=== PATIENT | female | born 1970 | race Caucasian/White ===

== ENCOUNTER → 2017-01-01 | Day surgery (SDC) | payer MEDICAID, MEDICARE ==
[~2017-01-01] MED LIST: BUPIVACAINE HCL PF 0.5% 10 ML VIAL ONE; COEN400C PO; D31000TA PO; GABA600T PO; GLIM1 PO; HYDR-3533 PO; KETOROLAC TROMETHAMINE 30 MG/ML (IVP) VIAL IV PUSH ONE; LACTATED RINGER'S 1000 ML INJ 1,000 ML ONE; MIDAZOLAM HCL 2 MG/2 ML VIAL ONE; ONDANSETRON HCL 4 MG/2 ML VIAL IV PUSH ONE; PRAV20 PO; PROPOFOL 200 MG/20 ML AMP IV ONE; SITA100 PO; TRIAMCINOLONE ACETONIDE 40 MG/ML VIAL ONE; ULTR50TA PO; VITA100017 PO; VITA400C70 PO; ceFAZolin 2 GM PREMIX 50 ML ONE
--- NOTE | 2017-01-02 13:43 | MP ---
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 PROCEDURE PREFORMED: Excision right third interspace mass Abdi's neuroma Neurectomy. SPECIMEN Right foot third interspace likely neuroma. ESTIMATED BLOOD LOSS Less than 30 ml's. INJECTABLES 0.5 cc of Kenalog 40, 10 cc of 0.25% Marcaine plain PLAN OF ACTIVITY: PACU then DC home once stable per same-day surgery criteria JUSTIFICATION FOR PROCEDURE: 46-year-old female with increasing right foot pain. MRI per my read showed inflammation around the third interspace nerve. We devised a plan to move forward surgical intervention. The patient was noted to have an elevated hemoglobin A1c, she was counseled on the possibility of wound dehiscence deep infection, delayed healing. The patient was okay with the risks and chose to move forward surgery. PROCEDURE IN DETAIL Under mild sedation the patient was brought to the operating room, placed on the operative the supine position following the induction of general anesthesia, local anesthesia was seen about the forefoot utilizing standard block fashion. The right foot was then scrubbed, prepped and draped in the usual aseptic fashion. The foot was elevated, exsanguinated previously placed mid ankle tourniquet inflated to 250 mmHg and the incision was made over the dorsal aspect of the base of the third digit which curved slightly into the third interspace. Sharp and blunt dissection was carried down to the superficial adipose and being careful not to violate the dorsal neurovascular structures. Sharp and blunt dissection was carried down to the transverse intermetatarsal ligament which was then severed. There is noted to be inflamed third interspace nerve. It was then dissected out into the distal portions of the level of the third and fourth digit, utilizing vessel loops this was identified. The nerve was then pulled as far distally as proximal and infiltrated with and Kenalog at the stump allowing for retraction after severance of the nerve deep into the plantar interossei. The neuroma was then removed it appeared to be an inflamed nerve however, there is no obvious soft tissue hardness, texture or infiltrating mass type presentation. The wound was flushed copious amounts of normal saline. The wound was then closed in layers. Upon relieving the tourniquet there is a prompt hyperemic response to all digits without any delayed capillary fill time. The patient is heel transfer weight-bear. She will ice, elevate. I will see the patient in 3-5 days. FRANCOISE Gaines /3:24 PM /1:36 PM
== END | disposition home or self-care (01) ==
LOC: ESDC 13:24
PROVIDERS: ATTEND Podiatrist Foot & Ankle Surgery
DX: G57.61 Lesion of plantar nerve, right lower limb (principal)
CPT/HCPCS: 01470; 28080; 88304; J0690; J1885; J2250; J2405; J3010; J3301; J7120

== ENCOUNTER 2017-06-25 01:57 | Emergency (ER) | payer MEDICARE ==
[~2017-06-25] VITALS: Ht 175.3 cm; Wt 109.8 kg
[~2017-06-25 01:57] MED LIST changes: -BUPIVACAINE HCL PF 0.5% 10 ML VIAL ONE; -KETOROLAC TROMETHAMINE 30 MG/ML (IVP) VIAL IV PUSH ONE; -LACTATED RINGER'S 1000 ML INJ 1,000 ML ONE; -MIDAZOLAM HCL 2 MG/2 ML VIAL ONE; -ONDANSETRON HCL 4 MG/2 ML VIAL IV PUSH ONE; -PROPOFOL 200 MG/20 ML AMP IV ONE; -TRIAMCINOLONE ACETONIDE 40 MG/ML VIAL ONE; -ceFAZolin 2 GM PREMIX 50 ML ONE
[2017-06-25 02:02] VITALS: BP 173/103; PULSE 110; RESP 22; TEMP 98.7; O2SAT 95
--- NOTE | 2017-06-25 02:55 | PD ---
HPI Chief Complaint: elevated blood sugar Time Seen by Provider: 02:48 Travel History International Travel<30 days: No Contact w/Intl Traveler<30days: No Traveled to known affect area: No History of Present Illness HPI The patient is a 47-year-old female that is a glimepiride and metformin controlled diabetic who got a shot of prednisone about 11 AM yesterday. Her blood sugar went up to 500 at home area she took an extra 500 mg of metformin next are as well as two 1 mg tablets of glimepiride. She comes in because she is concerned about her puncture. The Accu-Chek here done it 0240 was 450. PFSH Past Medical History Diabetes: Yes Genitourinary: Yes (UTIs) Immunizations Current: Yes Past Surgical History Hysterectomy: Yes (partial) Tonsillectomy: Yes Other Surgery: Yes (SINUS) Social History Alcohol Use: Yes (rare) Tobacco Use: No Substance Use: No Allergies-Medications (Allergen,Severity, Reaction): Coded Allergies: No Known Allergies (Unverified , 06/25/17) Reported Meds & Prescriptions Reported Meds & Active Scripts Active Reported Amoxicillin 875 Mg Tab 875 Mg PO BID Gemfibrozil 600 Mg Tab 600 Mg PO BIDAC Take 30 minutes prior to breakfast and dinner. Metformin ER (Metformin HCl) 500 Mg Gilberto 500 Mg PO HS With evening meal Glimepiride 2 Mg Tab 2 Mg PO TID Sumatriptan (Sumatriptan Succinate) 25 Mg Tab 25 Mg PO ONCE PRN If a satisfactory response has not been obtained at 2 hours, a second dose may be administered Gabapentin 600 Mg Tab 600 Mg PO HS Review of Systems Except as stated in HPI: all other systems reviewed are Neg Physical Exam Narrative GENERAL: Well-nourished, alert and oriented, obese patient in no apparent distress. Her vital signs show pulse rate of 110 and blood pressure 173/103 but are otherwise normal. SKIN: Focused skin assessment warm/dry. HEAD: Normocephalic. EYES: No scleral icterus. No injection or drainage. NECK: Supple, trachea midline. No JVD or lymphadenopathy. CARDIOVASCULAR: Regular rate and rhythm without murmurs, gallops, or rubs. RESPIRATORY: Breath sounds equal bilaterally. No accessory muscle use. GASTROINTESTINAL: Abdomen soft, non-tender, nondistended. No guarding or rebound is present. MUSCULOSKELETAL: No cyanosis, or edema. BACK: Nontender without obvious deformity. No CVA tenderness. Data Data Last Documented VS Vital Signs Date Time Temp Pulse Resp B/P Pulse Ox O2 Delivery O2 Flow Rate FiO2 06/25/17 03:19 98 16 154/83 98 Room Air 06/25/17 02:02 98.7 Orders Insulin Human Regular Inj (Novolin R Inj (06/25/17 03:00) Basic Metabolic Panel (Bmp) (06/25/17 02:56) Urinalysis - C+S If Indicated (06/25/17 02:56) Labs Laboratory Tests Test 06/25/17 03:00 Urine Color YELLOW Urine Turbidity CLEAR Urine pH 5.5 Urine Specific [place] GREATER THAN 1.035 Urine Protein NEG mg/dL Urine Glucose (UA) 1000 OR GREATER mg/dL Urine Ketones 15 mg/dL Urine Occult Blood TRACE Urine Nitrite NEG Urine Bilirubin NEG Urine Leukocyte Esterase NEG Urine RBC 0-3 /hpf Urine WBC 0-2 /hpf Urine Squamous Epithelial 0-5 /hpf Cells Urine Bacteria NONE /hpf Microscopic Urinalysis Comment CULT NOT INDICATED Sodium Level 132 MEQ/L Potassium Level 5.0 MEQ/L Chloride Level 97 MEQ/L Carbon Dioxide Level 24.1 MEQ/L Anion Gap 11 MEQ/L Calcium Level 9.5 MG/DL MDM Medical Decision Making Medical Screen Exam Complete: Yes Emergency Medical Condition: Yes Medical Record Reviewed: Yes Differential Diagnosis Elevated blood sugar from steroids, diabetes mellitus poor control, noncompliance to medications, infection, UTI Narrative Course The 3:30 Accu-Chek is 399. It appears that the sugar is gradually going down. The patient has an Accu-Chek machine at home and she can check to make sure there is no overt shoe. She states she has never had low blood sugar on her metformin. Diagnosis Primary Impression: Poorly controlled diabetes mellitus Additional Impression: Steroid-induced hyperglycemia Additional Instructions: As we discussed, talk about the effect of steroids on your blood sugar later on this morning with her primary care physician. It appears that you are sensitive to steroid-induced hyperglycemia. Disposition: 01 DISCHARGE HOME Condition: Stable Blas Ray MD Jun 25, 2017 02:55
[2017-06-25] MEDS ORDERED: GLIM2TAB PO (02:59)
[2017-06-25] MEDS ORDERED: GABA600T PO (02:59)
[2017-06-25] MEDS ORDERED: SUMA25TA2 PO (02:59)
[2017-06-25] MEDS ORDERED: INSULIN HUMAN REGULAR 1,000 UNITS/10 ML VIAL SQ ONE (03:00)
[2017-06-25] MEDS ORDERED: METF500T4 PO (03:00)
[2017-06-25] MEDS ORDERED: AMOX875T PO (03:01)
[2017-06-25] MEDS ORDERED: GEMF600T PO (03:01)
[2017-06-25 03:15] LABS: BLOOD, URINE TRACE (NEG); KETONE, URINE 15 mg/dL (NEG); NITRITE,URINE NEG (NEG); PH, URINE 5.5 (5.0-8.5)
[2017-06-25 03:19] VITALS: BP 154/83; PULSE 98; RESP 16; O2SAT 98
[2017-06-25 03:19] LABS: GLUCOSE,URINE 1000 OR GREATER mg/dL (NEG)
[2017-06-25 03:20] LABS: URINE COLOR YELLOW (YELLW/STRAW)
[2017-06-25 03:24] LABS: COMMENT (UR) CULT NOT INDICATED; CULTURE IF INDICATED CULT NOT INDICATED; RBC, URINE 0-3 /hpf (0-3); SQUAMOUS EPITHELIAL CELL URINE 0-5 /hpf (0-5); WBC, URINE 0-2 /hpf (0-5)
[2017-06-25 03:27] LABS: BICARBONATE 24.1 MEQ/L (21.0-32.0)
== END 2017-06-25 03:44 | disposition home or self-care (01) ==
LOC: PHED 01:57
DX: E11.65 Type 2 diabetes mellitus with hyperglycemia (principal); T38.0X5A Adverse effect of glucocorticoids and synthetic analogues, initial encounter; Z79.84 Long term (current) use of oral hypoglycemic drugs
CPT/HCPCS: 80048; 81001; 96372; 99284; J1815

== ENCOUNTER 2017-06-29 22:07 | Observation (INO) | payer MEDICARE ==
[~2017-06-29] VITALS: Ht 175.3 cm; Wt 111.0 kg
[~2017-06-29 22:07] MED LIST changes: +AMOX875T PO; -COEN400C PO; -D31000TA PO; +GEMF600T PO; -GLIM1 PO; +GLIM2TAB PO; -HYDR-3533 PO; +METF500T4 PO; -PRAV20 PO; -SITA100 PO; +SUMA25TA2 PO; -ULTR50TA PO; -VITA100017 PO; -VITA400C70 PO
[2017-06-29 22:09] VITALS: BP 155/81; PULSE 100; RESP 18; TEMP 97.7; O2SAT 96
[2017-06-29] MEDS ORDERED: SODIUM CHLOR 0.9% 1000 ML INJ 1,000 ML IV SCH (22:29)
[2017-06-29] MEDS ORDERED: ONDANSETRON HCL 4 MG/2 ML VIAL IVP ONE (22:30)
[2017-06-29] MEDS ORDERED: HYDROmorphone HCL PF 2 MG/ML VIAL IVS ONE (22:30)
[2017-06-29] MEDS ORDERED: SODIUM CHLORIDE 0.9% FLUSH 10 ML FLUSH IV FLUSH PRN (22:30)
--- NOTE | 2017-06-29 22:37 | PD ---
HPI Chief Complaint: ABD PAIN Time Seen by Provider: 22:29 Travel History International Travel<30 days: No Contact w/Intl Traveler<30days: No Traveled to known affect area: No History of Present Illness HPI ALL DAY C/O UPPER ABD PAIN, RADIATING STRAIGHT TO THE BACK, 9/10, NAUSEA BUT WITHOUT VOMITING, NO DIARRHEA/FEVER/CP/MALAVE AT THIS POINT. AT FIRST FELT BACK PAIN BUT THEN IT WAS HER EPIG TO LUQ REGION THAT WAS PAINFUL PFSH Past Medical History Diabetes: Yes GERD: Yes Genitourinary: Yes (UTIs) Musculoskeletal: Yes (herniated disc) Immunizations Current: Yes Migraines: Yes Triglycerides - High: Yes Past Surgical History Abdominal Surgery: Yes (gallbladder removed) Hysterectomy: Yes (partial) Tonsillectomy: Yes Other Surgery: Yes (SINUS) Social History Alcohol Use: Yes (rare) Tobacco Use: No Substance Use: No Allergies-Medications (Allergen,Severity, Reaction): Coded Allergies: No Known Allergies (Unverified , 06/29/17) Reported Meds & Prescriptions Reported Meds & Active Scripts Active Reported Amoxicillin 875 Mg Tab 875 Mg PO BID Gemfibrozil 600 Mg Tab 600 Mg PO BIDAC Take 30 minutes prior to breakfast and dinner. Metformin ER (Metformin HCl) 500 Mg Gilberto 500 Mg PO HS With evening meal Glimepiride 2 Mg Tab 2 Mg PO TID Sumatriptan (Sumatriptan Succinate) 25 Mg Tab 25 Mg PO ONCE PRN If a satisfactory response has not been obtained at 2 hours, a second dose may be administered Gabapentin 600 Mg Tab 600 Mg PO HS Review of Systems Except as stated in HPI: all other systems reviewed are Neg Gastrointestinal: Positive: Nausea, Abdominal Pain Physical Exam Narrative GENERAL: SKIN: Warm and dry. HEAD: Atraumatic. Normocephalic. EYES: Pupils equal and round. No scleral icterus. No injection or drainage. ENT: No nasal bleeding or discharge. Mucous membranes pink and moist. NECK: Trachea midline. No JVD. CARDIOVASCULAR: Regular rate and rhythm. RESPIRATORY: No accessory muscle use. Clear to auscultation. Breath sounds equal bilaterally. GASTROINTESTINAL: Abdomen soft, EPIG AND LUQ TENDERNESS TO PERCUSSION, nondistended. MUSCULOSKELETAL: Extremities without clubbing, cyanosis, or edema. No obvious deformities. NEUROLOGICAL: Awake and alert. No obvious cranial nerve deficits. Motor grossly within normal limits. Five out of 5 muscle strength in the arms and legs. Normal speech. PSYCHIATRIC: Appropriate mood and affect; insight and judgment normal. Data Data Last Documented VS Vital Signs Date Time Temp Pulse Resp B/P Pulse Ox O2 Delivery O2 Flow Rate FiO2 06/29/17 23:50 76 18 115/49 98 Room Air 06/29/17 23:10 97.7 Orders Complete Blood Count With Diff (06/29/17 22:29) Comprehensive Metabolic Panel (06/29/17 22:29) Lipase (06/29/17 22:29) Prothrombin Time / Inr (Pt) (06/29/17 22:29) Act Partial Throm Time (Ptt) (06/29/17 22:29) Ct Abd/Pel W/O Iv Contrast (06/29/17 22:29) Iv Access Insert/Monitor (06/29/17 22:29) Ecg Monitoring (06/29/17 22:29) Oximetry (06/29/17 22:29) NPO (06/29/17 22:29) Hydromorphone Pf Inj (Dilaudid Pf Inj) (06/29/17 22:30) Ondansetron Inj (Zofran Inj) (06/29/17 22:30) Sodium Chlor 0.9% 1000 Ml Inj (Ns 1000 M (06/29/17 22:29) Sodium Chloride 0.9% Flush (Ns Flush) (06/29/17 22:30) Electrocardiogram (06/29/17 22:29) Troponin I (06/29/17 22:29) Metformin (Glucophage) (06/29/17 23:30) Labs Laboratory Tests Test 06/29/17 06/29/17 22:45 22:50 White Blood Count 11.3 TH/MM3 Red Blood Count 5.18 MIL/MM3 Hemoglobin 15.5 GM/DL Hematocrit 45.2 % Mean Corpuscular Volume 87.4 FL Mean Corpuscular Hemoglobin 30.0 PG Mean Corpuscular Hemoglobin 34.3 % Concent Red Cell Distribution Width 12.1 % Platelet Count 293 TH/MM3 Mean Platelet Volume 7.7 FL Neutrophils (%) (Auto) 43.8 % Lymphocytes (%) (Auto) 41.8 % Monocytes (%) (Auto) 7.6 % Eosinophils (%) (Auto) 5.5 % Basophils (%) (Auto) 1.3 % Neutrophils # (Auto) 5.0 TH/MM3 Lymphocytes # (Auto) 4.7 TH/MM3 Monocytes # (Auto) 0.9 TH/MM3 Eosinophils # (Auto) 0.6 TH/MM3 Basophils # (Auto) 0.1 TH/MM3 CBC Comment DIFF FINAL Differential Comment Prothrombin Time 10.1 SEC Prothromb Time International 0.9 RATIO Ratio Activated Partial 25.2 SEC Thromboplast Time Sodium Level 137 MEQ/L Potassium Level 3.2 MEQ/L Chloride Level 100 MEQ/L Carbon Dioxide Level 29.3 MEQ/L Anion Gap 8 MEQ/L Blood Urea Nitrogen 18 MG/DL Creatinine 0.66 MG/DL Estimat Glomerular Filtration 95 ML/MIN Rate Random Glucose 227 MG/DL Calcium Level 8.8 MG/DL Total Bilirubin 0.3 MG/DL Aspartate Amino Transf 17 U/L (AST/SGOT) Alanine Aminotransferase 45 U/L (ALT/SGPT) Alkaline Phosphatase 84 U/L Troponin I LESS THAN 0.02 NG/ML Total Protein 7.3 GM/DL Albumin 3.6 GM/DL Lipase 436 U/L [facility] Medical Decision Making Medical Screen Exam Complete: Yes Emergency Medical Condition: Yes Medical Record Reviewed: Yes Interpretation(s) MOTION ARTIFACT, NSR 96, NONSPECIFIC STT CHANGES, NO STEMI PATTERN Differential Diagnosis PANCREATITIS V HEPATITIS V GASTRITIS V Narrative Course NOTED THAT LIPASE WAS SLIGHTLY ELEVATED BUT PRESENTATION IS CLINICALLY CLASSIC FOR PANCREATITIS. ADDITIONALLY ON CT SCAN FOUND SEVERAL RIGHT SIDED CYST WITH A POSSIBLE MASS WELL WHICH MAY BE RISING FROM RIGHT OVARY, MALIGNANCY CANNOT BE EXCLUDED YET...WILL ADMIT FOR OBS Diagnosis Primary Impression: ACUTE PANCREATITIS Additional Impression: POSSIBLE RIGHT OVARIAN MASS Admitting Information Admitting Physician Requests: Observation Petey Smith MD Jun 29, 2017 22:37
[2017-06-29 23:10] VITALS: BP 155/81; PULSE 100; RESP 18; TEMP 97.7; O2SAT 96
[2017-06-29 23:19] VITALS: RESP 18; O2SAT 98
[2017-06-29] MEDS ORDERED: metFORMIN HCL 500 MG TAB PO ONE (23:30)
[2017-06-29 23:32] LABS: CHLORIDE 100 MEQ/L (98-107); POTASSIUM 3.2 MEQ/L (3.5-5.1); SODIUM (NA) 137 MEQ/L (136-145)
[2017-06-29 23:35] LABS: ANION GAP 8 MEQ/L (5-15); BICARBONATE 29.3 MEQ/L (21.0-32.0)
[2017-06-29 23:36] LABS: BLOOD UREA NITROGEN 18 MG/DL (7-18)
[2017-06-29 23:37] LABS: APTT (PATIENT) 25.2 SEC (24.3-30.1); INTERNATIONAL NORMALIZED RATIO 0.9 RATIO; PROTHROMBIN TIME - PATIENT 10.1 SEC (9.8-11.6)
[2017-06-29 23:38] LABS: ALT (GPT) 45 U/L (10-53); AST (GOT) 17 U/L (15-37); GLOMERULAR FILTRATION RATE 95 ML/MIN (>89)
[2017-06-29 23:38] LABS: BASOPHIL # 0.1 TH/MM3 (0-0.2); BASOPHIL % 1.3 % (0.0-2.0); EOSINOPHIL # 0.6 TH/MM3 (0-0.4); EOSINOPHIL % 5.5 % (0.0-4.0); HEMATOCRIT 45.2 % (35.0-46.0); LYMPH % 41.8 % (9.0-44.0); LYMPHOCYTE # 4.7 TH/MM3 (1.0-4.8); MEAN CELL VOLUME 87.4 FL (80.0-100.0); MEAN CORPUSCULAR HGB CONC 34.3 % (32.0-36.0); MONO % 7.6 % (0.0-8.0); NEUT % 43.8 % (16.0-70.0); PLATELET COUNT 293 TH/MM3 (150-450); RED BLOOD COUNT 5.18 MIL/MM3 (4.00-5.30); RED CELL DISTRIBUTION WIDTH 12.1 % (11.6-17.2); WHITE BLOOD COUNT 11.3 TH/MM3 (4.0-11.0)
[2017-06-29 23:40] LABS: TOTAL BILIRUBIN ADULT 0.3 MG/DL (0.2-1.0)
[2017-06-29 23:41] LABS: ALKALINE PHOSPHATASE 84 U/L (45-117)
[2017-06-29 23:44] LABS: HEMO FLAGS DIFF FINAL
--- NOTE | 2017-06-29 23:47 | RADRPT ---
EXAM DATE/TIME: 06/29/2017 23:18 [facility] COMPARISON: No previous studies available for comparison. INDICATIONS : Left upper quadrant abdominal pain. ORAL CONTRAST: No oral contrast ingested. RADIATION DOSE: 22.04 CTDIvol (mGy) MEDICAL HISTORY : Gastroesophageal reflux disease. Diabetes mellitus type 2. SURGICAL HISTORY : Cholecystectomy. Hysterectomy. ENCOUNTER: Initial ACUITY: 1 day PAIN SCALE: 9/10 LOCATION: Left upper quadrant TECHNIQUE: Volumetric scanning of the abdomen and pelvis was performed. Using automated exposure control and ad justment of the mA and/or kV according to patient size, radiation dose was kept as low as reasonably achievable to obtain optimal diagnostic quality images. DICOM format image data is available electro nically for review and comparison. FINDINGS: LOWER LUNGS: The visualized lower lungs are clear. LIVER: Diffuse decreased density without lesion. A few scattered punctate calcifications. There is no dila tion of the biliary tree. Cholecystectomy. SPLEEN: Normal size without lesion. A few scattered punctate calcifications. PANCREAS: Within normal limits. KIDNEYS: Normal in size and shape. There is no mass, stone, or hydronephrosis. ADRENAL GLANDS: Within normal limits. VASCULAR: There is no aortic aneurysm. BOWEL/MESENTERY: No dilated loops of small or large bowel. No evidence of free intraperitoneal gas or free fluid. ABDOMINAL WALL: Within normal limits. RETROPERITONEUM: There is no lymphadenopathy. BLADDER: Unusual configuration to the urinary bladder with elongated AP dimension and flattening of the latera l bladder wall bilaterally due to pelvic lipomatosis. REPRODUCTIVE: Hysterectomy. In the right mid pelvis, there is a prominent mass measuring 4.4 cm with adjacent mult iple cysts, the largest cyst measures 5.87. The mass and cysts could arise from the right ovary. In the left adnexal region, there are several cysts but no mass. INGUINAL: There is no lymphadenopathy or hernia. MUSCULOSKELETAL: Within normal limits for patient age. CONCLUSION: 1. 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 There is also a mass in the mid right lower pelvis measuring excess of 4 cm with multiple adjace nt cysts measuring up to 5.8 cm. This may be of right ovarian origin; cannot exclude an ovarian kenyatta gnancy. 2. Steatosis of the liver. Scotty Jenkins MD on June 29, 2017 at 23:39 Board Certified Radiologist. This report was verified electronically.
[2017-06-29 23:50] VITALS: BP 115/49; PULSE 76; RESP 18; O2SAT 98
[2017-06-30] VITALS (8 sets, daily range): BP systolic 98–130; BP diastolic 45–81; PULSE 60–91; RESP 18–20; TEMP 95.9–97.5; O2SAT 94–98
[2017-06-30] MEDS ORDERED: POTASSIUM CHLORIDE 20 MEQ CONTROLLED RELEASE TAB PO ONE (00:30)
[2017-06-30] MEDS ORDERED: NALOXONE HCL 0.4 MG/ML AMP IV PRN (00:30)
[2017-06-30] MEDS ORDERED: HYDROmorphone HCL PF 1 MG/ML VIAL IVS ONE (00:30)
[2017-06-30] MEDS ORDERED: GLUCAGON 1 MG/ML VIAL OTHER PRN ×2 (00:30→10:45)
[2017-06-30] MEDS ORDERED: SODIUM CHLORIDE 0.9% FLUSH 10 ML FLUSH IV FLUSH PRN (00:30)
[2017-06-30] MEDS ORDERED: DEXTROSE 50% IN WATER 50 ML VIAL(D50) IV PRN ×2 (00:30→10:45)
[2017-06-30] MEDS: ONDANSETRON HCL 4 MG/2 ML VIAL IVP PRN ×2 (00:37→15:03)
[2017-06-30] MEDS: SODIUM CHLOR 0.9% 1000 ML INJ 1,000 ML IV SCH ×3 (00:37→20:13)
[2017-06-30] MEDS: HYDROmorphone HCL PF 1 MG/ML VIAL IV PUSH PRN ×2 (04:32→09:00)
--- NOTE | 2017-06-30 07:37 | EKG ---
Date Performed: 06/29/2017 Time Performed: 22:45:19 PTAGE: 47 years EKG: Baseline artifact present Sinus rhythm BORDERLINE LEFT AXIS DEVIATION MINIMAL VOLTAGE CRITERIA FOR LVH, CONSIDER NORMAL VARIANT NONSPECIFIC T-WAVE ABNORMALITY BORDERLINE ECG NO PREVIOUS TRACING DOCTOR: Tony King Interpretating Date/Time 06/30/2017 07:35:46
[2017-06-30 08:06] LABS: AUTOMATED NEUTROPHIL # 4.6 TH/MM3 (1.8-7.7); BASOPHIL % 0.4 % (0.0-2.0); EOSINOPHIL # 0.6 TH/MM3 (0-0.4); EOSINOPHIL % 6.1 % (0.0-4.0); HEMATOCRIT 39.4 % (35.0-46.0); HEMO FLAGS DIFF FINAL; LYMPH % 35.5 % (9.0-44.0); LYMPHOCYTE # 3.2 TH/MM3 (1.0-4.8); MEAN CELL VOLUME 87.3 FL (80.0-100.0); MEAN CORPUSCULAR HEMOGLOBIN 29.4 PG (27.0-34.0); MEAN CORPUSCULAR HGB CONC 33.7 % (32.0-36.0); MONO % 7.9 % (0.0-8.0); NEUT % 50.1 % (16.0-70.0); PLATELET COUNT 235 TH/MM3 (150-450); RED BLOOD COUNT 4.52 MIL/MM3 (4.00-5.30); RED CELL DISTRIBUTION WIDTH 11.8 % (11.6-17.2); WHITE BLOOD COUNT 9.1 TH/MM3 (4.0-11.0)
[2017-06-30 08:47] LABS: BICARBONATE 31.7 MEQ/L (21.0-32.0); MAGNESIUM 1.7 MG/DL (1.5-2.5); POTASSIUM 4.1 MEQ/L (3.5-5.1)
[2017-06-30] MEDS: SODIUM CHLORIDE 0.9% FLUSH 10 ML FLUSH IV FLUSH SCH ×2 (08:59→20:10)
[2017-06-30] MEDS: MAGNESIUM SULFATE 1 GM PREMIX 100 ML IV SCH ×2 (08:59→10:14)
--- NOTE | 2017-06-30 10:28 | HHI.HP ---
HPI Service [facility] Primary [facility] Physician Ngoc Dc MD Admission Diagnosis ACUTE PANCREATITIS, PAIN CONTROL, EVAL FOR POSSIBLE OVARIAN MASS Diagnoses: Chief Complaint: Abdominal pain Travel History International Travel<30 Days: No Contact w/Intl Traveler <30 Da: No Traveled to Known Affected Are: No History of Present Illness 47-year-old female with a medical history significant for diabetes, GERD, and migraines who presented to the emergency room with complaint of abdominal pain. Patient reports she has had diarrhea for the past week which she attributed to antibiotics she was taking for sinusitis. Yesterday she started experiencing left upper quadrant abdominal pain. She described the pain as sharp and became severe which prompted the emergency room visit. She does have chronic back pain but her back pain seems to have gotten worse as well. She endorsed mild nausea but no vomiting. Since arrival, she was started on IV fluid and given pain medication. Currently reports she is feeling better except for a headache. Workup in the emergency room concerning for pancreatitis. Abdominal CT revealed a suspicious pelvic mass. The patient denies vaginal bleeding or pelvic pain. Review of Systems Constitutional: DENIES: Fever Respiratory: DENIES: Cough, Shortness of breath Gastrointestinal: COMPLAINS OF: Abdominal pain, Diarrhea, Nausea, DENIES: Vomiting Genitourinary: DENIES: Abnormal vaginal bleeding, Dysuria, Vaginal discharge Except as stated in HPI: all other systems reviewed are Neg Past Family Social History Past Medical History Diabetes GERD Migraines Recurrent sinusitis Past Surgical History Cholecystectomy Partial hysterectomy. Fallopian tubes and ovaries were not removed. A shunt reports she had a precancerous endometrial biopsy. That was the reason for the hysterectomy. Reported Medications Reported Meds & Active Scripts Active Reported Amoxicillin 875 Mg Tab 875 Mg PO BID Gemfibrozil 600 Mg Tab 600 Mg PO BIDAC Take 30 minutes prior to breakfast and dinner. Metformin ER (Metformin HCl) 500 Mg Gilberto 500 Mg PO HS With evening meal Glimepiride 2 Mg Tab 2 Mg PO TID Sumatriptan (Sumatriptan Succinate) 25 Mg Tab 25 Mg PO ONCE PRN If a satisfactory response has not been obtained at 2 hours, a second dose may be administered Gabapentin 600 Mg Tab 600 Mg PO HS Allergies: Coded Allergies: No Known Allergies (Unverified , 06/29/17) Family History Mother with history of diabetes Social History Patient does not smoke tobacco, no alcohol or illicit drugs. Physical Exam Vital Signs Vital Signs Date Time Temp Pulse Resp B/P Pulse Ox O2 Delivery O2 Flow Rate FiO2 06/30/17 08:11 96.1 69 19 102/62 98 06/30/17 04:00 96.8 72 18 100/55 96 06/30/17 02:04 74 06/30/17 01:06 18 06/30/17 00:00 95.9 74 18 98/58 94 06/29/17 23:50 76 18 115/49 98 Room Air 06/29/17 23:31 18 06/29/17 23:19 18 98 Room Air 06/29/17 23:15 18 06/29/17 23:10 97.7 100 18 155/81 96 06/29/17 22:09 97.7 100 18 155/81 96 Physical Exam GENERAL: This is a well-nourished, well-developed patient, in no apparent distress. SKIN: No rashes, ecchymoses or lesions. Cool and dry. HEAD: Atraumatic. Normocephalic. No temporal or scalp tenderness. EYES: Pupils equal round and reactive. Extraocular motions intact. No scleral icterus. No injection or drainage. ENT: Nose without bleeding, purulent drainage or septal hematoma. Throat without erythema, tonsillar hypertrophy or exudate. Uvula midline. Airway patent. NECK: Trachea midline. No JVD or lymphadenopathy. Supple, nontender, no meningeal signs. CARDIOVASCULAR: Regular rate and rhythm without murmurs, gallops, or rubs. RESPIRATORY: Clear to auscultation. Breath sounds equal bilaterally. No wheezes , rales, or rhonchi. GASTROINTESTINAL: Abdomen soft, nondistended, mild tenderness to palpation over the left upper quadrant. No hepato-splenomegaly, or palpable masses. No guarding. MUSCULOSKELETAL: Extremities without clubbing, cyanosis, or edema. No joint tenderness, effusion, or edema noted. No calf tenderness. Negative Homans sign bilaterally. NEUROLOGICAL: Awake and alert. Cranial nerves II through XII intact. Motor and sensory grossly within normal limits. Five out of 5 muscle strength in all muscle groups. Normal speech. Laboratory Laboratory Tests Test 06/29/17 06/29/17 06/30/17 22:45 22:50 07:50 White Blood Count 11.3 9.1 Red Blood Count 5.18 4.52 Hemoglobin 15.5 13.3 Hematocrit 45.2 39.4 Mean Corpuscular Volume 87.4 87.3 Mean Corpuscular Hemoglobin 30.0 29.4 Mean Corpuscular Hemoglobin 34.3 33.7 Concent Red Cell Distribution Width 12.1 11.8 Platelet Count 293 235 Mean Platelet Volume 7.7 7.1 Neutrophils (%) (Auto) 43.8 50.1 Lymphocytes (%) (Auto) 41.8 35.5 Monocytes (%) (Auto) 7.6 7.9 Eosinophils (%) (Auto) 5.5 6.1 Basophils (%) (Auto) 1.3 0.4 Neutrophils # (Auto) 5.0 4.6 Lymphocytes # (Auto) 4.7 3.2 Monocytes # (Auto) 0.9 0.7 Eosinophils # (Auto) 0.6 0.6 Basophils # (Auto) 0.1 0.0 CBC Comment DIFF FINAL DIFF FINAL Differential Comment Prothrombin Time 10.1 Prothromb Time International 0.9 Ratio Activated Partial 25.2 Thromboplast Time Sodium Level 137 142 Potassium Level 3.2 4.1 Chloride Level 100 105 Carbon Dioxide Level 29.3 31.7 Anion Gap 8 5 Blood Urea Nitrogen 18 17 Creatinine 0.66 0.66 Estimat Glomerular Filtration 95 95 Rate Random Glucose 227 146 Calcium Level 8.8 8.0 Total Bilirubin 0.3 Aspartate Amino Transf 17 (AST/SGOT) Alanine Aminotransferase 45 (ALT/SGPT) Alkaline Phosphatase 84 Troponin I LESS THAN 0.02 Total Protein 7.3 Albumin 3.6 Lipase 436 191 Magnesium Level 1.7 Carcinoembryonic Antigen 0.5 Result Diagram: 06/30/17 0750 06/30/17 0750 Imaging Last Impressions Abdomen/Pelvis CT 06/29/172228 Signed Impressions: Service Date/Time: Thursday, June 29, 2017 23:18 - CONCLUSION: 1. 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 There is also a mass in the mid right lower pelvis measuring excess of 4 cm with multiple adjacent cysts measuring up to 5.8 cm. This may be of right ovarian origin; cannot exclude an ovarian malignancy. 2. Steatosis of the liver. Scotty Jenkins MD Assessment and Plan Problem List: (1) Pancreatitis ICD Code: K85.90 Status: Acute Plan: Etiology unclear. Could be medication related. States she had a "shot of steroids" a few days ago. Resolving, lipase down to normal range this morning. Start heart healthy diet Pain control as needed. (2) Pelvic mass ICD Code: R19.00 Status: Acute Plan: CORPORATE EVENTS DIRECTOR has been consulted. Tumor markers ordered. Pain control. Pelvic ultrasound pending. (3) Diabetes ICD Code: E11.9 Status: Acute Plan: Patient is normally on metformin and glyburide. Start Sliding scale insulin with Accu-Cheks Check hemoglobin A1c (4) Migraine ICD Code: G43.909 Status: Acute Plan: Resumed sumatriptan Mirella Garcia MD Jun 30, 2017 10:28
[2017-06-30] MEDS ORDERED: MORPHINE SULFATE 4 MG/ML INJ IV PUSH PRN (10:30)
[2017-06-30] MEDS ORDERED: SUMAtriptan SUCCINATE 25 MG TAB PO PRN (10:30)
[2017-06-30] MEDS: INSULIN ASPART SUPPLEMENTAL SCALE SQ SCH ×3 (11:00→21:00)
--- NOTE | 2017-06-30 11:24 | RADRPT ---
EXAM DATE/TIME: 06/30/2017 08:09 [facility] COMPARISON: CT ABDOMEN & PELVIS W/O CONTRAST, June 29, 2017, 23:18. INDICATIONS : Pelvic mass seen on CT scan. MEDICAL HISTORY : Gastroesophageal reflux disease. Diabetes mellitus type 2. SURGICAL HISTORY : Hysterectomy. Cholecystectomy. ENCOUNTER: Subsequent ACUITY: 1 day PAIN SCORE: 6/10 LOCATION: Bilateral pelvis MEASUREMENTS: RIGHT OVARY: 9.1 x 4.9 x 7.0 UTERUS: Surgically absent RIGHT OVARY: Non visualized LEFT OVARY: 4.0 x 3.5 x 2.9 cm FINDINGS: The patient is status-post hysterectomy. There is a complex cystic mass seen at the right adnexal on ly seen on the transabdominal images. This complex right adnexal mass measures 9.1 x 4.9 x 7.0 cm. This is predominantly cystic but there are several different cystic components some which have mildly thickened robertson. In the left adnexal there is a tubular structure identified measuring 6.9 x 2.5 x 1.7 cm. A separate definitive left ovary is not seen. Free fluid is not seen in the pelvis. CONCLUSION: 1. Complex mass in the right adnexa. This could be related to a right ovarian mass such as a neoplas m including cystadenoma and cystadenoma carcinomas. It is non-specific. 2. Tubular structures seen in the left adnexa. This could be related to a dilated fallopian tube and represent hydrosalpinx. Communication with the uterus is not clearly identified. An elongated cyst ic component of the left ovary could also contribute to this appearance. A separate left ovary is no t clearly seen. Jan Leonard MD on June 30, 2017 at 10:03 Board Certified Radiologist. This report was verified electronically.
--- NOTE | 2017-06-30 14:22 | HHI.HP ---
HPI Chief Complaint Admission for acute upper abdominal pain Date Seen: Jun 30, 2017 Time Seen: 12:30 Travel History International Travel<30 Days: No Contact w/Intl Traveler<30Days: No Known Affected Area: No History of Present Illness HPI 47 y/o G0, s/p NUSRAT in 2010 for uterine fibroids,endometrial hyperplascia and endometriosis complicated by postop infection / abscess with MRSA. Patient present back to [facility] a second time for severe upper abdominal pain radiating to her back. Work up demonstrated elevated lipase c/w mild pancreatitis. CT scan revealed cystic right adnexal mass. Pelvic sonogram was ordered and demonstrated a 9cm complex mass arising from the right adnexa, a left sided cyst was seen as well which could be a hydrosalpinx. She denies lower abdominal or pelvic pain. Para: 0 : 0 Last Menstrual Period: Jun 30, 2017 History Obstetric History Obstetric History G0 Past Surgical History Narrative Surgical See adm H+P Family History Family History: Negative Social History Alcohol Use: No Tobacco Use: No Substance Abuse: No Allergies-Medications (Allergen,Severity, Reaction): Coded Allergies: No Known Allergies (Unverified , 06/29/17) Home Meds Reported Medications Amoxicillin 875 Mg [id number] Mg PO BID Ref 0 06/25/17 Gemfibrozil 600 Mg [id number] Mg PO BIDAC #60 TAB Ref 0 Take 30 minutes prior to breakfast and dinner. 06/25/17 Metformin ER 500 Mg [id number] Mg PO HS Ref 0 With evening meal 06/25/17 Glimepiride 2 Mg Tab2 Mg PO TID #60 TAB Ref 0 06/25/17 Sumatriptan 25 Mg Tab25 Mg PO ONCE PRN (MIGRAINE HEADACHE) Ref 0 If a satisfactory response has not been obtained at 2 hours, a second dose may be administered 06/25/17 Gabapentin 600 Mg [id number] Mg PO HS #30 TAB Ref 0 06/25/17 Review of Systems Gastrointestinal: Nausea, Abdominal Pain, Indigestion, Loss of Appetite Musculoskeletal: Other (back pain) Physical Exam Vital Signs Date Time Temp Pulse Resp B/P Pulse Ox O2 Delivery O2 Flow Rate FiO2 06/30/17 12:19 96.3 70 19 105/45 98 06/30/17 08:11 96.1 69 19 102/62 98 06/30/17 04:00 96.8 72 18 100/55 96 06/30/17 02:04 74 06/30/17 01:06 18 06/30/17 00:00 95.9 74 18 98/58 94 06/29/17 23:50 76 18 115/49 98 Room Air 06/29/17 23:31 18 06/29/17 23:19 18 98 Room Air 06/29/17 23:15 18 06/29/17 23:10 97.7 100 18 155/81 96 06/29/17 22:09 97.7 100 18 155/81 96 Narrative GENERAL: Well-nourished, well-developed patient. SKIN: Warm and dry. HEAD: Normocephalic and atraumatic. EYES: No scleral icterus. No injection or drainage. ENT: No nasal drainage noted. Mucous membranes pink. Airway patent. NECK: Supple, trachea midline. No JVD. CARDIOVASCULAR: Regular rate and rhythm without murmurs, gallops, or rubs. RESPIRATORY: Breath sounds equal bilaterally. No accessory muscle use. BREASTS: Bilateral exam showed no masses , no retractions, no nipple discharge. ABDOMEN/GI: Abdomen soft, -tender upper quadrants, bowel sounds present, no rebound, no guarding GENITOURINARY: defered, will follow up as outpatient EXTREMITIES: No cyanosis or edema. BACK: Nontender without obvious deformity. No CVA tenderness. NEUROLOGICAL: Awake and alert. Motor and sensory grossly within normal limits. Five out of 5 muscle strength in all muscle groups. Normal speech. Data Data Vital Signs Reviewed: Yes Orders Complete Blood Count With Diff (06/29/17 22:29) Comprehensive Metabolic Panel (06/29/17 22:29) Lipase (06/29/17 22:29) Prothrombin Time / Inr (Pt) (06/29/17 22:29) Act Partial Throm Time (Ptt) (06/29/17 22:29) Ct Abd/Pel W/O Iv Contrast (06/29/17 22:29) Iv Access Insert/Monitor (06/29/17 22:29) Ecg Monitoring (06/29/17 22:29) Oximetry (06/29/17 22:29) NPO (06/29/17 22:29) Hydromorphone Pf Inj (Dilaudid Pf Inj) (06/29/17 22:30) Ondansetron Inj (Zofran Inj) (06/29/17 22:30) Sodium Chlor 0.9% 1000 Ml Inj (Ns 1000 M (06/29/17 22:29) Sodium Chloride 0.9% Flush (Ns Flush) (06/29/17 22:30) Electrocardiogram (06/29/17 22:29) Troponin I (06/29/17 22:29) Metformin (Glucophage) (06/29/17 23:30) Hydromorphone Pf Inj (Dilaudid Pf Inj) (06/30/17 00:30) Admit Order (Ed Use Only) (06/30/17 00:24) Place In Observation (06/30/17 ) Vital Signs (Adult) Q4H (06/30/17 00:24) Activity Oob With Assistance (06/30/17 00:24) [employer] Machine Operator / Telemetry .CONTINUOUS (06/30/17 00:24) Diet Clear Liquid (06/30/17 Breakfast) Sodium Chlor 0.9% 1000 Ml Inj (Ns 1000 M (06/30/17 00:24) Sodium Chloride 0.9% Flush (Ns Flush) (06/30/17 00:30) Sodium Chloride 0.9% Flush (Ns Flush) (06/30/17 09:00) Ondansetron Inj (Zofran Inj) (06/30/17 00:30) Comprehensive Metabolic Panel (07/01/17 06:00) Complete Blood Count With Diff (07/01/17 06:00) Naloxone Inj (Narcan Inj) (06/30/17 00:30) Consult Gynecology (06/30/17 ) Hydromorphone Pf Inj (Dilaudid Pf Inj) (06/30/17 00:30) Potassium Chloride (Kcl) (06/30/17 00:30) Bedside Glucose MECHE.AC&HS (06/30/17 00:29) Blood Glucose Goal (Criteria) (06/30/17 00:29) Hypoglycemia 70 Mg/Dl Or < (06/30/17 00:29) Notify Dr: Other (06/30/17 00:29) Dextrose 50% In Suzanne (Vial) Inj (D50w (Vi (06/30/17 00:30) Glucagon Inj (Glucagon Inj) (06/30/17 00:30) (Hub Use Only)In Phy Cons/Ref (06/30/17 ) Physician Name Changes (06/30/17 ) Cancer Antigen 125 (06/30/17 06:59) Carcinoembryonic Antigen (Cea) (06/30/17 06:59) Magnesium (Mg) (06/30/17 07:22) Basic Metabolic Panel (Bmp) (06/30/17 07:22) Complete Blood Count With Diff (06/30/17 07:22) Lipase (06/30/17 07:22) Magnesium Sulfate 1 Gm Premix (Magnesium (06/30/17 08:00) Us Pelvis Comp W Transvaginal (06/30/17 ) Ca 19-9 (06/30/17 08:56) Diet Heart Healthy (06/30/17 Lunch) Gabapentin (Neurontin) (06/30/17 21:00) Sumatriptan Succinate (Imitrex) (06/30/17 10:30) Acetamin-Hydrocod 325-5 Mg ([place] 5-325 (06/30/17 10:30) Morphine Inj (Morphine Inj) (06/30/17 10:30) Bedside Glucose MECHE.AC&HS (06/30/17 10:31) Blood Glucose Goal (Criteria) (06/30/17 10:31) Hypoglycemia 70 Mg/Dl Or < (06/30/17 10:31) Notify Dr: Other (06/30/17 10:31) Dextrose 50% In Suzanne (Vial) Inj (D50w (Vi (06/30/17 10:45) Glucagon Inj (Glucagon Inj) (06/30/17 10:45) Insulin Aspart Supplemtl Scale (Novolog (06/30/17 11:00) Basic Metabolic Panel (Bmp) (07/01/17 06:00) (Hub Use Only)In Phy Cons/Ref (06/30/17 ) Labs Laboratory Tests Test 06/29/17 06/29/17 06/30/17 22:45 22:50 07:50 White Blood Count 11.3 9.1 Red Blood Count 5.18 4.52 Hemoglobin 15.5 13.3 Hematocrit 45.2 39.4 Mean Corpuscular Volume 87.4 87.3 Mean Corpuscular Hemoglobin 30.0 29.4 Mean Corpuscular Hemoglobin 34.3 33.7 Concent Red Cell Distribution Width 12.1 11.8 Platelet Count 293 235 Mean Platelet Volume 7.7 7.1 Neutrophils (%) (Auto) 43.8 50.1 Lymphocytes (%) (Auto) 41.8 35.5 Monocytes (%) (Auto) 7.6 7.9 Eosinophils (%) (Auto) 5.5 6.1 Basophils (%) (Auto) 1.3 0.4 Neutrophils # (Auto) 5.0 4.6 Lymphocytes # (Auto) 4.7 3.2 Monocytes # (Auto) 0.9 0.7 Eosinophils # (Auto) 0.6 0.6 Basophils # (Auto) 0.1 0.0 CBC Comment DIFF FINAL DIFF FINAL Differential Comment Prothrombin Time 10.1 Prothromb Time International 0.9 Ratio Activated Partial 25.2 Thromboplast Time Sodium Level 137 142 Potassium Level 3.2 4.1 Chloride Level 100 105 Carbon Dioxide Level 29.3 31.7 Anion Gap 8 5 Blood Urea Nitrogen 18 17 Creatinine 0.66 0.66 Estimat Glomerular Filtration 95 95 Rate Random Glucose 227 146 Calcium Level 8.8 8.0 Total Bilirubin 0.3 Aspartate Amino Transf 17 (AST/SGOT) Alanine Aminotransferase 45 (ALT/SGPT) Alkaline Phosphatase 84 Troponin I LESS THAN 0.02 Total Protein 7.3 Albumin 3.6 Lipase 436 191 Magnesium Level 1.7 Carcinoembryonic Antigen 0.5 CA 19-9 Antigen 3.8 CA 125 Antigen 10.5 Assessment/Plan Assessment and Plan 1. Pancreatitis- Mild 2, Pelvic mass, complex cyst, await tumor markers, discussed possible etiologies but malignancy seems unlikely. I discussed need for follow up as outpatient in my office after her pancreatitis resolves.She is aware that surgery will not be considered this admission UNLESS there is a clinical change Fausto Rojas MD Jun 30, 2017 14:22
[2017-06-30] MEDS: ACETAMINOPHEN/HYDROcodone 325 MG/5 MG TAB PO PRN ×2 (15:03→20:10)
[2017-06-30] MEDS ORDERED: GABAPENTIN 300 MG CAP PO SCH (21:00)
[2017-07-01] VITALS: BP 109/59; PULSE 63; RESP 20; TEMP 97.3; O2SAT 97
[2017-07-01] MEDS: ACETAMINOPHEN/HYDROcodone 325 MG/5 MG TAB PO PRN ×2 (00:18→05:28)
[2017-07-01 00:30] VITALS: BP 109/59; PULSE 63; RESP 20; TEMP 97.3; O2SAT 97
[2017-07-01 04:00] VITALS: BP 103/56; PULSE 62; RESP 20; TEMP 97.4; O2SAT 94
[2017-07-01] MEDS: SODIUM CHLOR 0.9% 1000 ML INJ 1,000 ML IV SCH (05:28)
[2017-07-01 06:06] LABS: CHLORIDE 105 MEQ/L (98-107); POTASSIUM 4.3 MEQ/L (3.5-5.1); SODIUM (NA) 140 MEQ/L (136-145)
[2017-07-01 06:10] LABS: AUTOMATED NEUTROPHIL # 3.5 TH/MM3 (1.8-7.7); BASOPHIL % 0.6 % (0.0-2.0); EOSINOPHIL # 0.5 TH/MM3 (0-0.4); HEMATOCRIT 36.5 % (35.0-46.0); HEMO FLAGS DIFF FINAL; LYMPH % 43.2 % (9.0-44.0); LYMPHOCYTE # 3.6 TH/MM3 (1.0-4.8); MEAN CELL VOLUME 86.6 FL (80.0-100.0); MEAN CORPUSCULAR HEMOGLOBIN 29.1 PG (27.0-34.0); MEAN CORPUSCULAR HGB CONC 33.6 % (32.0-36.0); MONO % 7.2 % (0.0-8.0); PLATELET COUNT 191 TH/MM3 (150-450); RED BLOOD COUNT 4.22 MIL/MM3 (4.00-5.30); RED CELL DISTRIBUTION WIDTH 11.7 % (11.6-17.2); WHITE BLOOD COUNT 8.2 TH/MM3 (4.0-11.0)
[2017-07-01 06:17] LABS: ALKALINE PHOSPHATASE 63 U/L (45-117); ALT (GPT) 33 U/L (10-53); ANION GAP 5 MEQ/L (5-15); AST (GOT) 15 U/L (15-37); BICARBONATE 29.9 MEQ/L (21.0-32.0); BLOOD UREA NITROGEN 13 MG/DL (7-18); GLOMERULAR FILTRATION RATE 110 ML/MIN (>89); TOTAL BILIRUBIN ADULT 0.5 MG/DL (0.2-1.0)
[2017-07-01] MEDS: INSULIN ASPART SUPPLEMENTAL SCALE SQ SCH (07:00)
[2017-07-01] MEDS: SODIUM CHLORIDE 0.9% FLUSH 10 ML FLUSH IV FLUSH SCH (08:16)
[2017-07-01 08:58] VITALS: BP 125/71; PULSE 65; RESP 20; TEMP 97.1; O2SAT 93
[2017-07-01] MEDS ORDERED: HYDR-3516 PO (08:58)
--- NOTE | 2017-07-01 08:58 | HHI.DCPOC ---
Discharge Care Plan Diagnosis: (1) Pancreatitis (2) Diabetes (3) Migraine (4) Pelvic mass Goals to Promote Your Health * To prevent worsening of your condition and complications * To maintain your health at the optimal level Directions to Meet Your Goals Take your medications as prescribed Follow your dietary instruction Follow activity as directed Keep your appointments as scheduled Take your immunizations and boosters as scheduled If your symptoms worsen call your PCP, if no PCP go to Urgent Care Center or Emergency Room Smoking is Dangerous to Your Health. Avoid second hand smoke Call the 24-hour hour crisis hotline for domestic abuse at Mirella Garcia MD Jul 01, 2017 08:58
--- NOTE | 2017-07-01 12:15 | HHI.PR ---
Subjective Remarks Patient reports she is feeling better this morning. Tolerated breakfast. She was seen by [facility] OPERATOR. We discussed outpatient follow-up. Objective Vitals Vital Signs Date Time Temp Pulse Resp B/P Pulse Ox O2 Delivery O2 Flow Rate FiO2 07/01/17 08:58 97.1 65 20 125/71 93 07/01/17 04:00 97.4 62 20 103/56 94 07/01/17 00:30 97.3 63 20 109/59 97 07/01/17 00:00 97.3 63 20 109/59 97 06/30/17 23:13 60 06/30/17 21:42 97.5 91 20 130/81 94 06/30/17 16:58 96.1 69 19 104/45 98 06/30/17 12:19 96.3 70 19 105/45 98 I/O 06/30/17 06/30/17 06/30/17 07/01/17 07/01/17 07/01/17 06:59 14:59 22:59 06:59 14:59 22:59 Intake Total 725 ml 1590 ml 609 ml 1001 ml Output Total 0 ml Balance 725 ml 1590 ml 609 ml 1001 ml Intake Oral 220 ml 1590 ml 240 ml IV Total 505 ml 369 ml 1001 ml Output Urine Total 0 ml # Voids 0 6 0 # Bowel Movements 0 0 0 Result Diagram: 07/01/17 0510 07/01/17 0510 Imaging Last Impressions Pelvis Ultrasound 06/30/17 0000 Signed Impressions: Service Date/Time: Friday, June 30, 2017 08:09 - CONCLUSION: 1. Complex mass in the right adnexa. This could be related to a right ovarian mass such as a neoplasm including cystadenoma and cystadenoma carcinomas. It is non-specific. 2. Tubular structures seen in the left adnexa. This could be related to a dilated fallopian tube and represent hydrosalpinx. Communication with the uterus is not clearly identified. An elongated cystic component of the left ovary could also contribute to this appearance. A separate left ovary is not clearly seen. Jan Leonard MD Abdomen/Pelvis CT 06/29/17 2229 Signed Impressions: Service Date/Time: Thursday, June 29, 2017 23:18 - CONCLUSION: 1. 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 There is also a mass in the mid right lower pelvis measuring excess of 4 cm with multiple adjacent cysts measuring up to 5.8 cm. This may be of right ovarian origin; cannot exclude an ovarian malignancy. 2. Steatosis of the liver. Scotty Jenkins MD Objective Remarks GENERAL: This is a well-nourished, well-developed patient, in no apparent distress. CARDIOVASCULAR: Normal rate and regular rhythm without murmurs, gallops, or rubs. RESPIRATORY: Good respiratory efforts. Breath sounds equal and clear to auscultation bilaterally. GASTROINTESTINAL: Abdomen soft, non-distended, mild tenderness to palpation diffusely. Normal active bowel sounds MUSCULOSKELETAL: Extremities without cyanosis, or edema. NEURO: Alert & Oriented x4 to person, place, time, situation. Moves all ext x4 PSYCH: Appropriate mood and affect. A/P Problem List: (1) Pancreatitis ICD Code: K85.90 Status: Acute Plan: Etiology unclear. Could be medication related. States she had a "shot of steroids" a few days ago. Resolved. Resume a heart healthy diet. Pain medication as needed (2) Pelvic mass ICD Code: R19.00 Status: Acute Plan: Tumor markers including CA-19-9 and CEA 125 unremarkable. Patient was evaluated by TRIM AND BURR OPERATOR. Malignancy unlikely. Recommended outpatient follow-up. The patient agreed to follow-up outpatient. (3) Diabetes ICD Code: E11.9 Status: Acute Plan: Patient is normally on metformin and glyburide. Start Sliding scale insulin with Accu-Cheks Check hemoglobin A1c (4) Migraine ICD Code: G43.909 Status: Acute Plan: Resumed sumatriptan Discharge Planning Medically cleared to be discharged home. Discharge home in good condition Activity: Regular as tolerated Diet: Heart healthy Follow-up with: PCP and [employer] [facility]URR OPERATOR Meds: Per med rec Mirella Garcia MD Jul 01, 2017 12:15
== END 2017-07-01 10:35 | disposition home or self-care (01) ==
LOC: PHED 22:07 → PHEDA 06-30 00:27 → PH3B 06-30 01:07
PROVIDERS: ADMIT Family Medicine; ATTEND Family Medicine
DX: K85.90 Acute pancreatitis without necrosis or infection, unspecified (principal); R19.00 Intra-abdominal and pelvic swelling, mass and lump, unspecified site; E11.9 Type 2 diabetes mellitus without complications; E88.2 Lipomatosis, not elsewhere classified; G43.909 Migraine, unspecified, not intractable, without status migrainosus; G89.29 Other chronic pain; M54.9 Dorsalgia, unspecified; J32.9 Chronic sinusitis, unspecified; R94.31 Abnormal electrocardiogram [ECG] [EKG]; K21.9 Gastro-esophageal reflux disease without esophagitis; Z90.710 Acquired absence of both cervix and uterus
CPT/HCPCS: 74176; 76830; 76856; 80048; 80053; 82378; 82948; 83690; 83735; 84484; 85025; 85610; 85730; 86301; 86304; 93005; 96361; 96365; 96366; 96375; 96376; 99285; G0378; J1170; J2405; J3475; J7030

== ENCOUNTER 2017-07-04 08:35 | Emergency (ER) | payer MEDICARE ==
[~2017-07-04] VITALS: Ht 175.3 cm; Wt 110.0 kg
[~2017-07-04 08:35] MED LIST changes: -AMOX875T PO; +HYDR-3516 PO
[2017-07-04 08:39] VITALS: BP 166/81; PULSE 89; RESP 16; TEMP 98.6; O2SAT 100
[2017-07-04 08:57] VITALS: BP 118/76; PULSE 79; RESP 22; O2SAT 99
--- NOTE | 2017-07-04 09:12 | PD ---
HPI Chief Complaint: Abdominal Pain Time Seen by Provider: 08:52 Travel History International Travel<30 days: No Contact w/Intl Traveler<30days: No Traveled to known affect area: No History of Present Illness HPI 47yo F with PMH of DM, GERD presents to the ED with c/o epigastric abdominal pain since yesterday. Pain is constant, waxes and wanes in intensity and radiates to left upper abdomen. Pain seems to be worst a little after eating. Associated with nausea. Denies any fever, chest pain, sob, vomiting, dysuria, vaginal bleeding or discharge. Pt did noticed some pinkish coloration in urine. Pt was recently admitted for mild pancreatitis and was admitted from -07/01/[address] a/p and pelvic US that showed right adnexa mass. OBGYN was consulted and pt was able to follow up with PHYSICIAN CODER Dr. Rojas in her clinic yesterday and said it was hydrosalpinx. PSH include cholecystectomy and partial hysterectomy. Pt had endoscopy and colonoscopy done 2 year ago when she had her cholecystectomy and showed some signs of gastritis. PFSH Past Medical History Cardiovascular Problems: No Diabetes: Yes Patient Takes Glucophage: No GERD: Yes Genitourinary: Yes (UTIs) Musculoskeletal: Yes (herniated disc) Respiratory: Yes (REACTIVE AIRWAY) Immunizations Current: Yes Migraines: Yes Pancreatitis: Yes Triglycerides - High: Yes Tetanus Vaccination: > 5 Years ?: Not : 0 Para: 0 Past Surgical History Abdominal Surgery: Yes (gallbladder removed) Gynecologic Surgery: Yes (HYSTERECTOMY) Hysterectomy: Yes Tonsillectomy: Yes Other Surgery: Yes (SINUS X7) Social History Alcohol Use: No Tobacco Use: No Substance Use: No Allergies-Medications (Allergen,Severity, Reaction): Coded Allergies: hydromorphone (Verified Adverse Reaction, Severe, Headache, 07/04/17) Reported Meds & Prescriptions Reported Meds & Active Scripts Active Omeprazole 40 Mg Cap 40 Mg PO DAILY 14 Days Hydrocodone-Acetaminophen 5-325 mg Tab 1 Tab PO Q4H PRN Reported Gemfibrozil 600 Mg Tab 600 Mg PO BIDAC Take 30 minutes prior to breakfast and dinner. Metformin ER (Metformin HCl) 500 Mg Gilberto 500 Mg PO HS With evening meal Glimepiride 2 Mg Tab 2 Mg PO TID Sumatriptan (Sumatriptan Succinate) 25 Mg Tab 25 Mg PO ONCE PRN If a satisfactory response has not been obtained at 2 hours, a second dose may be administered Gabapentin 600 Mg Tab 600 Mg PO HS Review of Systems Except as stated in HPI: all other systems reviewed are Neg Physical Exam Narrative GENERAL: 47yo F in mild distress. SKIN: Focused skin assessment warm/dry. HEAD: Atraumatic. Normocephalic. CARDIOVASCULAR: Regular rate and rhythm. No murmur appreciated. RESPIRATORY: No accessory muscle use. Clear to auscultation. Breath sounds equal bilaterally. GASTROINTESTINAL: Abdomen soft, +TTP epigastric and LUQ. No rebound tenderness or guarding. No lower abdominal pain. MUSCULOSKELETAL: No obvious deformities. No clubbing. No cyanosis. No edema. NEUROLOGICAL: Awake and alert. No obvious cranial nerve deficits. Motor grossly within normal limits. Normal speech. PSYCHIATRIC: Appropriate mood and affect; insight and judgment normal. Data Data Last Documented VS Vital Signs Date Time Temp Pulse Resp B/P Pulse Ox O2 Delivery O2 Flow Rate FiO2 07/04/17 08:57 79 22 118/76 99 07/04/17 08:39 98.6 Orders Complete Blood Count With Diff (07/04/17 09:06) Comprehensive Metabolic Panel (07/04/17 09:06) Lipase (07/04/17 09:06) Ondansetron Inj (Zofran Inj) (07/04/17 09:15) Morphine Inj (Morphine Inj) (07/04/17 09:15) Urinalysis - C+S If Indicated (07/04/17 09:06) Ed Urine Pregnancytest Poc (07/04/17 09:06) Electrocardiogram (07/04/17 ) Pantoprazole Inj (Protonix Inj) (07/04/17 10:15) Labs Laboratory Tests Test 07/04/17 09:15 White Blood Count 6.8 TH/MM3 Red Blood Count 4.80 MIL/MM3 Hemoglobin 14.5 GM/DL Hematocrit 41.1 % Mean Corpuscular Volume 85.7 FL Mean Corpuscular Hemoglobin 30.3 PG Mean Corpuscular Hemoglobin 35.3 % Concent Red Cell Distribution Width 12.2 % Platelet Count 230 TH/MM3 Mean Platelet Volume 7.4 FL Neutrophils (%) (Auto) 50.5 % Lymphocytes (%) (Auto) 35.2 % Monocytes (%) (Auto) 7.6 % Eosinophils (%) (Auto) 5.9 % Basophils (%) (Auto) 0.8 % Neutrophils # (Auto) 3.4 TH/MM3 Lymphocytes # (Auto) 2.4 TH/MM3 Monocytes # (Auto) 0.5 TH/MM3 Eosinophils # (Auto) 0.4 TH/MM3 Basophils # (Auto) 0.1 TH/MM3 CBC Comment DIFF FINAL Differential Comment Urine Color YELLOW Urine Turbidity CLEAR Urine pH 8.0 Urine Specific [place] 1.012 Urine Protein NEG mg/dL Urine Glucose (UA) NEG mg/dL Urine Ketones NEG mg/dL Urine Occult Blood NEG Urine Nitrite NEG Urine Bilirubin NEG Urine Urobilinogen LESS THAN 2.0 MG/DL Urine Leukocyte Esterase NEG Urine Squamous Epithelial <1 /hpf Cells Microscopic Urinalysis Comment CULT NOT INDICATED Sodium Level 135 MEQ/L Potassium Level 4.1 MEQ/L Chloride Level 101 MEQ/L Carbon Dioxide Level 26.9 MEQ/L Anion Gap 7 MEQ/L Blood Urea Nitrogen 10 MG/DL Creatinine 0.63 MG/DL Estimat Glomerular Filtration 100 ML/MIN Rate Random Glucose 182 MG/DL Calcium Level 9.0 MG/DL Total Bilirubin 0.9 MG/DL Aspartate Amino Transf 29 U/L (AST/SGOT) Alanine Aminotransferase 50 U/L (ALT/SGPT) Alkaline Phosphatase 78 U/L Total Protein 7.5 GM/DL Albumin 3.9 GM/DL Lipase 195 U/L [facility] Medical Decision Making Medical Screen Exam Complete: Yes Emergency Medical Condition: Yes Interpretation(s) EKG: NSR 69bpm. LAD. No ST segment elevation or depression. Differential Diagnosis Gastritis vs. peptic ulcer disease vs. pancreatitis vs. choledocholithiasis vs. colitis Narrative Course 47yo F with epigastric/LUQ pain and nausea since yesterday. Labs reviewed, no leukocytosis. Glucose 182. CMP unremarkable. Lipase normal. UA negative. Pt given morphine and zofran and reevaluated at bedside. Abdominal pain and nausea has resolved. Abdomen is soft, NT/ND. Pt just recently had CT a/p a few days ago and pain is improved with medications. I still think this may be gastritis, GERD or PUD so will give first dose of protonix. Will have pt follow up with GI as an outpatient. Return precautions given. VS stable. Diagnosis Primary Impression: Abdominal pain Qualified Code: R10.13 - Epigastric pain Referrals: Stanislav Helton MD call for appointment Epigastric, left upper abdominal pain concerning for gastritis, peptic ulcer disease Patient Instructions: General Instructions Departure Forms: Tests/Procedures Additional Instructions: Please follow up with real estate agency principal in 1-2 days. Return to the ED if symptoms worsen. Med/Other Pt SpecificInfo: Prescription(s) given Scripts Ondansetron Odt (Zofran Odt)4 Mg Tab4 Mg SL Q12HR PRN (Nausea/Vomiting) #10 TAB Ref 0 Prov:Vee Shaw DO 07/04/17 Omeprazole 40 Mg Cap40 Mg PO DAILY 14 Days Ref 0 Prov:Vee Shaw DO 07/04/17 Disposition: 01 DISCHARGE HOME Condition: Stable Vee Shaw DO Jul 04, 2017 09:12
[2017-07-04] MEDS ORDERED: ONDANSETRON HCL 4 MG/2 ML VIAL IV PUSH ONE (09:15)
[2017-07-04] MEDS ORDERED: MORPHINE SULFATE 8 MG/ML INJ IV PUSH ONE (09:15)
[2017-07-04 09:29] LABS: BLOOD, URINE NEG (NEG); GLUCOSE,URINE NEG (NEG); KETONE, URINE NEG (NEG); NITRITE,URINE NEG (NEG); SQUAMOUS EPITHELIAL CELL URINE <1 /hpf (0-5); URINE COLOR YELLOW (YELLW/STRAW)
[2017-07-04 09:30] LABS: AUTOMATED NEUTROPHIL # 3.4 TH/MM3 (1.8-7.7); BASOPHIL # 0.1 TH/MM3 (0-0.2); BASOPHIL % 0.8 % (0.0-2.0); EOSINOPHIL # 0.4 TH/MM3 (0-0.4); EOSINOPHIL % 5.9 % (0.0-4.0); HEMATOCRIT 41.1 % (35.0-46.0); HEMO FLAGS DIFF FINAL; LYMPH % 35.2 % (9.0-44.0); LYMPHOCYTE # 2.4 TH/MM3 (1.0-4.8); MEAN CELL VOLUME 85.7 FL (80.0-100.0); MEAN CORPUSCULAR HEMOGLOBIN 30.3 PG (27.0-34.0); MEAN CORPUSCULAR HGB CONC 35.3 % (32.0-36.0); MONO % 7.6 % (0.0-8.0); NEUT % 50.5 % (16.0-70.0); PLATELET COUNT 230 TH/MM3 (150-450); RED CELL DISTRIBUTION WIDTH 12.2 % (11.6-17.2); WHITE BLOOD COUNT 6.8 TH/MM3 (4.0-11.0)
[2017-07-04 09:44] LABS: COMMENT (UR) CULT NOT INDICATED; CULTURE IF INDICATED CULT NOT INDICATED
[2017-07-04 09:48] LABS: ALT (GPT) 50 U/L (10-53); ANION GAP 7 MEQ/L (5-15); AST (GOT) 29 U/L (15-37); BICARBONATE 26.9 MEQ/L (21.0-32.0); BLOOD UREA NITROGEN 10 MG/DL (7-18); CHLORIDE 101 MEQ/L (98-107); GLOMERULAR FILTRATION RATE 100 ML/MIN (>89); POTASSIUM 4.1 MEQ/L (3.5-5.1); SODIUM (NA) 135 MEQ/L (136-145)
[2017-07-04 09:51] LABS: ALKALINE PHOSPHATASE 78 U/L (45-117); TOTAL BILIRUBIN ADULT 0.9 MG/DL (0.2-1.0)
[2017-07-04] MEDS ORDERED: OMEP40CA2 PO (10:12)
[2017-07-04] MEDS ORDERED: PANTOPRAZOLE SODIUM 40 MG VIAL IV PUSH ONE (10:15)
[2017-07-04] MEDS ORDERED: ZOFR4TAB3 SL (10:18)
[2017-07-04 10:20] VITALS: BP 132/78
--- NOTE | 2017-07-05 15:24 | EKG ---
Date Performed: 07/04/2017 Time Performed: 09:17:13 PTAGE: 47 years EKG: Sinus rhythm NORMAL ECG INTERPRETATION BASED ON A DEFAULT AGE OF 40 YEARS PREVIOUS TRACING : 06/29/2017 22.45 DOCTOR: Kalpesh Coronado Interpretating Date/Time 07/05/2017 15:22:21
== END 2017-07-04 10:22 | disposition home or self-care (01) ==
LOC: NEPE 08:35
DX: R10.13 Epigastric pain (principal); R10.12 Left upper quadrant pain; R11.0 Nausea; E11.9 Type 2 diabetes mellitus without complications; E78.1 Pure hyperglyceridemia; Z79.84 Long term (current) use of oral hypoglycemic drugs; Z87.19 Personal history of other diseases of the digestive system; Z87.448 Personal history of other diseases of urinary system; Z87.39 Personal history of other diseases of the musculoskeletal system and connective tissue; Z87.09 Personal history of other diseases of the respiratory system; Z86.69 Personal history of other diseases of the nervous system and sense organs
CPT/HCPCS: 80053; 81001; 83690; 84703; 85025; 93005; 96374; 96375; 99284; C9113; J2270; J2405

== ENCOUNTER 2017-09-17 09:42 | Observation (INO) | payer MEDICARE ==
[2017-09-17] VITALS (10 sets, daily range): BP systolic 109–140; BP diastolic 75–90; PULSE 65–80; RESP 16–18; TEMP 97.8–98.5; O2SAT 95–98
[~2017-09-17] VITALS: Ht 175.3 cm; Wt 108.0 kg
[~2017-09-17 09:42] MED LIST changes: +OMEP40CA2 PO; +ZOFR4TAB3 SL
[2017-09-17] MEDS ORDERED: SODIUM CHLORIDE 0.9% FLUSH 10 ML FLUSH IVF PRN (10:15)
[2017-09-17] MEDS ORDERED: HUMALOG SQ (10:15)
[2017-09-17] MEDS ORDERED: LEVEMIR SQ (10:15)
--- NOTE | 2017-09-17 10:30 | RADRPT ---
EXAM DATE/TIME: 09/17/2017 10:08 [place] COMPARISON: No previous studies available for comparison. INDICATIONS : Chest pain on left side. MEDICAL HISTORY : Gastroesophageal reflux disease. Diabetes mellitus type 2. SURGICAL HISTORY : Hysterectomy. Cholecystectomy. ENCOUNTER: Initial ACUITY: 2 days PAIN SCORE: 8/10 LOCATION: Bilateral chest FINDINGS: A single view of the chest demonstrates the lungs to be aerated without evidence of mass, infiltrate or effusion. There is nonspecific elevation of the right hemidiaphragm. The cardiomediastinal contou rs are unremarkable. Osseous structures are intact. CONCLUSION: No acute disease. Nonspecific elevation of the right hemidiaphragm. David Barney MD on September 17, 2017 at 10:28 Board Certified Radiologist. This report was verified electronically.
--- NOTE | 2017-09-17 10:38 | PD ---
HPI Chief Complaint: Chest Pain Time Seen by Provider: 09:57 Travel History International Travel<30 days: No Contact w/Intl Traveler<30days: No Traveled to known affect area: No History of Present Illness HPI This is a 47-year-old female who has a history of diabetes, hyperlipidemia, and a father who had a bypass in his early 50s who presents to the emergency department with 3 days of chest discomfort. She says that in the middle the night twice she's been woken up with left-sided chest discomfort that radiates under her armpit, constant, moderate severity, sharp, lasting for several minutes and then subsiding. She says last night she woke up covered in a sweat when this happened. She denies any nausea but does say she felt a little bit short of breath and she tried to use her inhaler but it didn't help. She did take an full dose aspirin at 3 AM. She's never had a stress test. She denies any recent long trips. PFSH Past Medical History Asthma: Yes Cardiovascular Problems: No High Cholesterol: Yes Diabetes: Yes Patient Takes Glucophage: No GERD: Yes Genitourinary: Yes (UTIs) Musculoskeletal: Yes (herniated disc) Respiratory: Yes (REACTIVE AIRWAY) Immunizations Current: Yes Migraines: Yes Pancreatitis: Yes Triglycerides - High: Yes ?: Not : 0 Para: 0 Past Surgical History Abdominal Surgery: Yes (gallbladder removed) Gynecologic Surgery: Yes (HYSTERECTOMY) Hysterectomy: Yes Tonsillectomy: Yes Other Surgery: Yes (SINUS X7) Family History Family Myocardial Infarction: Yes Social History Alcohol Use: No Tobacco Use: No (NEVER) Substance Use: No Allergies-Medications (Allergen,Severity, Reaction): Coded Allergies: hydromorphone (Verified Adverse Reaction, Severe, Headache, 09/17/17) Reported Meds & Prescriptions Reported Meds & Active Scripts Active Omeprazole 40 Mg Cap 40 Mg PO DAILY 14 Days Reported Humalog Inj (Insulin Human Lispro) 1,000 Unit/10 Ml Vial 1-9 Units SQ ACHS Max dose at bedtime:( )units; sugars< 70,(0)units; sugars 150-199,(1)unit; sugars 200-249,(3)units; sugars 250-299,(5)units; sugars 300-349,(7)units; sugars more than 349,(9)units. Levemir Inj (Insulin Detemir) 1,000 unit/ 10 ML Vial 12 Units SQ DAILY Do not mix with any other Insulin. Gabapentin 600 Mg Tab 600 Mg PO HS Review of Systems Except as stated in HPI: all other systems reviewed are Neg Physical Exam Narrative GENERAL:Well appearing, no acute distress SKIN: Focused skin assessment warm and dry. HEAD: Atraumatic. Normocephalic. EYES: Pupils equal and round. No injection or drainage. ENT: Moist mucous membranes NECK: Trachea midline. CARDIOVASCULAR: Regular rate and rhythm. No murmur appreciated. RESPIRATORY: Clear to auscultation. Breath sounds equal bilaterally. GASTROINTESTINAL: Abdomen soft, non-tender, nondistended. MUSCULOSKELETAL: No obvious deformities. NEUROLOGICAL: Awake and alert. No obvious cranial nerve deficits. Moving all extremities. PSYCHIATRIC: Appropriate mood and affect; insight and judgment normal. Data Data Last Documented VS Vital Signs Date Time Temp Pulse Resp B/P (MAP) Pulse Ox O2 Delivery O2 Flow Rate FiO2 09/17/17 10:50 72 16 139/77 (97) 97 Room Air 09/17/17 10:07 98.5 Orders Orders Electrocardiogram (09/17/17 10:06) Complete Blood Count With Diff (09/17/17 10:06) Comprehensive Metabolic Panel (09/17/17 10:06) Troponin I (09/17/17 10:06) Chest, Single Ap (09/17/17 10:06) Ecg Monitoring (09/17/17 10:06) Bilateral Bp Monitoring (09/17/17 10:06) Iv Access Insert/Monitor (09/17/17 10:06) Oximetry (09/17/17 10:06) Oxygen Administration (09/17/17 10:06) Sodium Chloride 0.9% Flush (Ns Flush) (09/17/17 10:15) Place In Observation (09/17/17 11:26) Activity Bed Rest With Brp (09/17/17 11:26) Vital Signs (Adult) Q4H (09/17/17 11:26) Cardiac Rhythm .As Directed (09/17/17 11:26) Notify Dr: Other .PRN (09/17/17 11:26) Notify Parameters (09/17/17 11:26) Resp Oxygen Nasal Cannula (09/17/17 ) Diet Npo (09/17/17 Lunch) ^ Obtain (09/17/17 11:26) Sodium Chloride 0.9% Flush (Ns Flush) (09/17/17 11:30) Sodium Chloride 0.9% Flush (Ns Flush) (09/17/17 21:00) Acetaminophen (Tylenol) (09/17/17 12:00) Ondansetron Inj (Zofran Inj) (09/17/17 12:00) Nitroglycerin Sl (Nitrostat Sl) (09/17/17 11:30) Filling And Packing Supervisor / Telemetry MECHE.Q8H (09/17/17 11:26) Bedside Glucose MECHE.CSUGAR (09/17/17 11:26) Blood Glucose Goal (Criteria) (09/17/17 11:26) Hypoglycemia 70 Mg/Dl Or < (09/17/17 11:26) Notify Dr: Other (09/17/17 11:26) Dextrose 50% In Suzanne (Vial) Inj (D50w (Vi (09/17/17 11:30) Glucagon Inj (Glucagon Inj) (09/17/17 11:30) Insulin Aspart Supplemtl Scale (Novolog (09/17/17 12:00) ^ Other Nursing Orders (09/17/17 11:26) Admit Order (Ed Use Only) (09/17/17 11:28) Labs Laboratory Tests Test 09/17/17 10:05 White Blood Count 9.3 TH/MM3 Red Blood Count 4.93 MIL/MM3 Hemoglobin 14.4 GM/DL Hematocrit 43.1 % Mean Corpuscular Volume 87.4 FL Mean Corpuscular Hemoglobin 29.1 PG Mean Corpuscular Hemoglobin Concent 33.3 % Red Cell Distribution Width 11.7 % Platelet Count 260 TH/MM3 Mean Platelet Volume 7.8 FL Neutrophils (%) (Auto) 52.8 % Lymphocytes (%) (Auto) 33.4 % Monocytes (%) (Auto) 6.3 % Eosinophils (%) (Auto) 6.7 % Basophils (%) (Auto) 0.8 % Neutrophils # (Auto) 4.9 TH/MM3 Lymphocytes # (Auto) 3.1 TH/MM3 Monocytes # (Auto) 0.6 TH/MM3 Eosinophils # (Auto) 0.6 TH/MM3 Basophils # (Auto) 0.1 TH/MM3 CBC Comment DIFF FINAL Differential Comment Blood Urea Nitrogen 15 MG/DL Creatinine 0.63 MG/DL Random Glucose 228 MG/DL Total Protein 7.6 GM/DL Albumin 3.8 GM/DL Calcium Level 8.3 MG/DL Alkaline Phosphatase 84 U/L Aspartate Amino Transf (AST/SGOT) 15 U/L Alanine Aminotransferase (ALT/SGPT) 38 U/L Total Bilirubin 0.4 MG/DL Sodium Level 136 MEQ/L Potassium Level 4.1 MEQ/L Chloride Level 102 MEQ/L Carbon Dioxide Level 26.2 MEQ/L Anion Gap 8 MEQ/L Estimat Glomerular Filtration Rate 100 ML/MIN Troponin I LESS THAN 0.02 NG/ML MDM Medical Decision Making Medical Screen Exam Complete: Yes Emergency Medical Condition: Yes Interpretation(s) No leukocytosis Electrolytes are reassuring Troponin is negative Chest x-rays reassuring EKG: Normal sinus rhythm, no ST changes, borderline LVH Differential Diagnosis Acute coronary syndrome, pulmonary embolism, costochondritis, GERD, anxiety Narrative Course This is a 47-year-old female who has a history of diabetes, hyperlipidemia and family history of heart disease who presents to the emergency department with several days of intermittent chest pains. She is placed on a monitor and an IV was established. EKG is nonischemic. Labs were obtained which demonstrated a normal troponin. Patient will be placed in the chest pain center for serial cardiac enzymes and risk stratification. I don't suspect she has a PE as she has normal vital signs and no risk factors for such. Diagnosis Primary Impression: Chest pain Qualified Codes: R07.9 - Chest pain, unspecified Admitting Information Admitting Physician Requests: Kelsie Pike MD Sep 17, 2017 10:38
[2017-09-17 10:48] LABS: AUTOMATED NEUTROPHIL # 4.9 TH/MM3 (1.8-7.7); BASOPHIL # 0.1 TH/MM3 (0-0.2); BASOPHIL % 0.8 % (0.0-2.0); EOSINOPHIL # 0.6 TH/MM3 (0-0.4); EOSINOPHIL % 6.7 % (0.0-4.0); HEMATOCRIT 43.1 % (35.0-46.0); HEMOGLOBIN 14.4 GM/DL (11.6-15.3); LYMPH % 33.4 % (9.0-44.0); LYMPHOCYTE # 3.1 TH/MM3 (1.0-4.8); MEAN CELL VOLUME 87.4 FL (80.0-100.0); MEAN CORPUSCULAR HEMOGLOBIN 29.1 PG (27.0-34.0); MEAN CORPUSCULAR HGB CONC 33.3 % (32.0-36.0); MEAN PLATELET VOLUME 7.8 FL (7.0-11.0); MONO % 6.3 % (0.0-8.0); MONOCYTE # 0.6 TH/MM3 (0-0.9); NEUT % 52.8 % (16.0-70.0); PLATELET COUNT 260 TH/MM3 (150-450); RED BLOOD COUNT 4.93 MIL/MM3 (4.00-5.30); RED CELL DISTRIBUTION WIDTH 11.7 % (11.6-17.2); WHITE BLOOD COUNT 9.3 TH/MM3 (4.0-11.0)
[2017-09-17 10:54] LABS: CHLORIDE 102 MEQ/L (98-107); SODIUM (NA) 136 MEQ/L (136-145)
[2017-09-17 10:57] LABS: CALCIUM 8.3 MG/DL (8.5-10.1)
[2017-09-17 10:58] LABS: ALBUMIN 3.8 GM/DL (3.4-5.0); BICARBONATE 26.2 MEQ/L (21.0-32.0); BLOOD UREA NITROGEN 15 MG/DL (7-18); GLUCOSE,RANDOM 228 MG/DL (74-106)
[2017-09-17 11:01] LABS: ALT (GPT) 38 U/L (10-53); AST (GOT) 15 U/L (15-37); CREATININE 0.63 MG/DL (0.50-1.00); GLOMERULAR FILTRATION RATE 100 ML/MIN (>89)
[2017-09-17 11:02] LABS: TOTAL BILIRUBIN ADULT 0.4 MG/DL (0.2-1.0); TOTAL PROTEIN 7.6 GM/DL (6.4-8.2)
[2017-09-17 11:04] LABS: ALKALINE PHOSPHATASE 84 U/L (45-117)
[2017-09-17 11:06] LABS: TROPONIN I LESS THAN 0.02 NG/ML (0.02-0.05)
[2017-09-17] MEDS ORDERED: GLUCAGON 1 MG/ML VIAL OTHER PRN (11:30)
[2017-09-17] MEDS ORDERED: SODIUM CHLORIDE 0.9% FLUSH 10 ML FLUSH IV FLUSH PRN (11:30)
[2017-09-17] MEDS ORDERED: NITROGLYCERIN 0.4 MG SL 25 TABS/BTL SL PRN (11:30)
[2017-09-17] MEDS ORDERED: DEXTROSE 50% IN WATER 50 ML VIAL(D50) IV PUSH PRN (11:30)
[2017-09-17] MEDS ORDERED: ONDANSETRON HCL 4 MG/2 ML VIAL IV PUSH PRN (12:00)
[2017-09-17] MEDS ORDERED: ACETAMINOPHEN 500 MG CPLT PO PRN (12:00)
[2017-09-17] MEDS: INSULIN ASPART SUPPLEMENTAL SCALE SQ SCH ×3 (12:00→20:43)
--- NOTE | 2017-09-17 12:50 | HHI.HP ---
HPI Service [facility] Primary Care Physician Ngoc Dc MD Admission Diagnosis Chest pain Diagnoses: (1) Chest pain Chief Complaint: Chest pain Travel History International Travel<30 Days: No Contact w/Intl Traveler <30 Da: No Traveled to Known Affected Are: No History of Present Illness Written by Janki Barr, acting as scribe for Dr. Cervantes on 09/17/17 at 12:41. Mrs. Rodríguez is a 47-year-old female patient with a known medical history of dyslipidemia and DM who presented to the ED with complaints of chest pain. Patient states two nights ago she was awoken out of sleep with left-sided chest pain. Pain was described as "squeezing" in nature and "felt deep in her chest", the pain was intermittent coming and going without any identifiable aggravating or relieving factors and radiated to her left arm. Patient states at that time she took an Aspirin 325 mg and finally went back to sleep. The next afternoon patient experienced a similar pain while doing normal day activities, decided to take another Aspirin 325 and the pain subsided. Early this morning patient was awoken again out of sleep with diaphoresis and similar stated pain. She presented to her PCP this am and was sent to the ED. Denies any associated nausea, vomiting or shortness of breath. Denies similar pain in the past. Denies any prior cardiac work up or stress testing. Denies any recent fever, chill, cough, headache, dizziness, shortness of breath, ab pain, n/v/d or dysuria. Does admit to recent overall fatigue with normal daily activities. Review of Systems Constitutional: COMPLAINS OF: Diaphoretic episodes, DENIES: Fever, Chills Eyes: DENIES: Blurred vision, Diplopia Respiratory: COMPLAINS OF: Snoring, DENIES: Sputum production, Shortness of breath Cardiovascular: COMPLAINS OF: Chest pain, Dyspnea on Exertion, DENIES: Palpitations Gastrointestinal: DENIES: Abdominal pain, Constipation, Diarrhea, Nausea, Vomiting Musculoskeletal: DENIES: Joint pain Neurologic: COMPLAINS OF: Headache Psychiatric: COMPLAINS OF: Anxiety Except as stated in HPI: all other systems reviewed are Neg Past Family Social History Past Medical History Dyslipidemia Type 2 diabetes mellitus Asthma Gastroparesis Fatty liver disease GERD Migraines Herniated discs Past Surgical History Hysterectomy Cholecystectomy Sinus surgery x 7 Tonsillectomy Reported Medications Active Omeprazole 40 Mg Cap 40 Mg PO DAILY 14 Days Reported Humalog Inj (Insulin Human Lispro) 1,000 Unit/10 Ml Vial 1-9 Units SQ ACHS Max dose at bedtime:( )units; sugars< 70,(0)units; sugars 150-199,(1)unit; sugars 200-249,(3)units; sugars 250-299,(5)units; sugars 300-349,(7)units; sugars more than 349,(9)units. Levemir Inj (Insulin Detemir) 1,000 unit/ 10 ML Vial 12 Units SQ DAILY Do not mix with any other Insulin. Gabapentin 600 Mg Tab 600 Mg PO HS Allergies: Coded Allergies: hydromorphone (Verified Adverse Reaction, Severe, Headache, 09/17/17) Active Ordered Medications Current Medications Medications (Trade) Dose Ordered Sig/Cody Route Start Time Stop Time Status Last Admin (NS Flush) 2 ml UNSCH PRN IVF 09/17/17 10:15 (NS Flush) 2 ml UNSCH PRN IV FLUSH 09/17/17 11:30 (NS Flush) 2 ml BID IV FLUSH 09/17/17 21:00 (Tylenol) 500 mg Q4H PRN PO 09/17/17 12:00 (Zofran Inj) 4 mg Q6H PRN IV PUSH 09/17/17 12:00 (Nitrostat Sl) 0.4 mg Q5M PRN SL 09/17/17 11:30 (D50w (Vial) Inj) 50 ml UNSCH PRN IV PUSH 09/17/17 11:30 (Glucagon Inj) 1 mg UNSCH PRN OTHER 09/17/17 11:30 (NovoLOG SUPPLEMENTAL SCALE) 1 ACHS SLIDING SCALE SQ 09/17/17 12:00 Family History Paternal medical history significant for CABG with triple bypass in his early 50 's. Maternal medical history significant for DM. Social History Denies any tobacco use. Admits to rare alcohol use. Denies any illicit drug use. Physical Exam Vital Signs Vital Signs Date Time Temp Pulse Resp B/P (MAP) Pulse Ox O2 Delivery O2 Flow Rate FiO2 11/2/17 11:50 69 16 135/90 (105) 98 Room Air 09/17/17 10:50 72 16 139/77 (97) 97 Room Air 09/17/17 10:07 98.5 76 16 140/75 (96) 98 09/17/17 10:05 16 98 Room Air 09/17/17 10:05 98 Room Air 09/17/17 10:05 76 Physical Exam GENERAL: This is a well-nourished, well-developed female patient, lying in bed in no apparent distress. SKIN: No rashes, ecchymoses or lesions. Warm and dry. HEENT: Atraumatic. Normocephalic. Pupils equal round and reactive. Extraocular motions intact. No scleral icterus. No injection or drainage. Nose without bleeding. Airway patent. NECK: Trachea midline. No JVD. Supple. CARDIOVASCULAR: Regular rate and rhythm without murmurs, gallops, or rubs. Unable to reproduce chest discomfort upon palpation. RESPIRATORY: Clear to auscultation. Breath sounds equal bilaterally. No wheezes , rales, or rhonchi. GASTROINTESTINAL: Abdomen soft, non-tender, nondistended. No guarding. MUSCULOSKELETAL: Extremities without clubbing, cyanosis, or edema. No joint tenderness, effusion, or edema noted. NEUROLOGICAL: Awake and alert. Cranial nerves II through XII intact. Motor and sensory grossly within normal limits. Five out of 5 muscle strength in all muscle groups. Normal speech. Laboratory Laboratory Tests Test 09/17/17 10:05 White Blood Count 9.3 Red Blood Count 4.93 Hemoglobin 14.4 Hematocrit 43.1 Mean Corpuscular Volume 87.4 Mean Corpuscular Hemoglobin 29.1 Mean Corpuscular Hemoglobin Concent 33.3 Red Cell Distribution Width 11.7 Platelet Count 260 Mean Platelet Volume 7.8 Neutrophils (%) (Auto) 52.8 Lymphocytes (%) (Auto) 33.4 Monocytes (%) (Auto) 6.3 Eosinophils (%) (Auto) 6.7 Basophils (%) (Auto) 0.8 Neutrophils # (Auto) 4.9 Lymphocytes # (Auto) 3.1 Monocytes # (Auto) 0.6 Eosinophils # (Auto) 0.6 Basophils # (Auto) 0.1 CBC Comment DIFF FINAL Differential Comment Blood Urea Nitrogen 15 Creatinine 0.63 Random Glucose 228 Total Protein 7.6 Albumin 3.8 Calcium Level 8.3 Alkaline Phosphatase 84 Aspartate Amino Transf (AST/SGOT) 15 Alanine Aminotransferase (ALT/SGPT) 38 Total Bilirubin 0.4 Sodium Level 136 Potassium Level 4.1 Chloride Level 102 Carbon Dioxide Level 26.2 Anion Gap 8 Estimat Glomerular Filtration Rate 100 Troponin I LESS THAN 0.02 Result Diagram: 09/17/17 1005 09/17/17 1005 Caprini VTE Risk Assessment Caprini VTE Risk Assessment: No/Low Risk (score <= 1) Caprini Risk Assessment Model Point Value = 1 Point Value = 2 Point Value = 3 Point Value = 5 Age 41-60 Minor surgery BMI > 25 kg/m2 Swollen legs Varicose veins or History of unexplained or recurrent spontaneous Oral contraceptives or hormone replacement Sepsis (< 1 month) Serious lung disease, including pneumonia (< 1 month) Abnormal pulmonary function Acute myocardial infarction Congestive heart failure (< 1 month) History of inflammatory bowel disease Medical patient at bed rest Age 61-74 Arthroscopic surgery Major open surgery (> 45 min) Laparoscopic surgery (> 45 min) Malignancy Confined to bed (> 72 hours) Immobilizing plaster cast Central venous access Age >= 75 History of VTE Family history of VTE Factor V Leiden Prothrombin [id number] Lupus anticoagulant Anticardiolipin antibodies Elevated serum homocysteine Heparin-induced thrombocytopenia Other congenital or acquired thrombophilia Stroke (< 1 month) Elective arthroplasty Hip, pelvis, or leg fracture Acute spinal cord injury (< 1 month) Prophylaxis Regimen Total Risk Factor Score Risk Level Prophylaxis Regimen 0-1 Low Early ambulation 2 Moderate Order ONE of the following: *Sequential Compression Device (SCD) *Heparin 5000 units SQ BID 3-4 Higher Order ONE of the following medications: *Heparin 5000 units SQ TID *Enoxaparin/Lovenox 40 mg SQ daily (WT < 150 kg, CrCl > 30 mL/min) *Enoxaparin/Lovenox 30 mg SQ daily (WT < 150 kg, CrCl > 10-29 mL/min) *Enoxaparin/Lovenox 30 mg SQ BID (WT < 150 kg, CrCl > 30 mL/min) AND/OR *Sequential Compression Device (SCD) 5 or more Highest Order ONE of the following medications: *Heparin 5000 units SQ TID (Preferred with Epidurals) *Enoxaparin/Lovenox 40 mg SQ daily (WT < 150 kg, CrCl > 30 mL/min) *Enoxaparin/Lovenox 30 mg SQ daily (WT < 150 kg, CrCl > 10-29 mL/min) *Enoxaparin/Lovenox 30 mg SQ BID (WT < 150 kg, CrCl > 30 mL/min) AND *Sequential Compression Device (SCD) Assessment and Plan Problem List: (1) Chest pain ICD Code: R07.9 - Chest pain, unspecified Plan: Admitted to the chest pain center. Serial EKGs and serial troponins ordered for ruling out purposes. EKG reviewed showing NSR, no arrhythmias or ST changes to indicated ischemia. First set of troponins flat. Will follow troponin trends. CBC reviewed and essentially unremarkable. CXR reviewed showing no acute disease. Patient will undergo a nuclear stress test and further treatment plan will depend on nuclear imaging results. Nitroglycerin available PRN. Supplemental O2 to keep sats > 92%. Supportive care. Continue cardiac telemetry. (2) Poorly controlled diabetes mellitus ICD Code: E11.65 - Type 2 diabetes mellitus with hyperglycemia Status: Acute Plan: Random glucose 228. Placed on sliding scale insulin, ACCU checks ACHS, cover as needed. Medical Decision Making Impression and Plan This note was transcribed by syd [tom]. I, Dr. Sujey Cervantes personally performed the history, physical exam, and medical decision making; and confirmed the accuracy of the information in the transcribed note. Authenticated by Dr. Sujey Cervantes on 09/17/17 at 13:12. Janki Barr Sep 17, 2017 12:50 Sujey Cervantes MD Sep 17, 2017 13:13
--- NOTE | 2017-09-17 13:30 | EKG ---
Date Performed: 09/17/2017 Time Performed: 09:58:28 PTAGE: 47 years EKG: Sinus rhythm MODERATE VOLTAGE CRITERIA FOR LVH, CONSIDER NORMAL VARIANT BORDERLINE ECG Compared to prior tracing no significant change PREVIOUS TRACING : 09/17/2017 09.51 DOCTOR: Amadeo Meyer Interpretating Date/Time 09/17/2017 13:27:39
[2017-09-17 13:47] LABS: TROPONIN I LESS THAN 0.02 NG/ML (0.02-0.05)
[2017-09-17] MEDS ORDERED: PANTOPRAZOLE SOD 40 MG DELAYED RELEASE TAB PO SCH (15:00)
[2017-09-17 16:37] LABS: TROPONIN I LESS THAN 0.02 NG/ML (0.02-0.05)
[2017-09-17] MEDS ORDERED: REGADENOSON INJ 0.4 MG/5 ML SYR IV ONE (17:51)
[2017-09-17] MEDS ORDERED: NITR0.4S SL (18:49)
--- NOTE | 2017-09-17 18:49 | HHI.DCPOC ---
Discharge Care Plan Diagnosis: (1) Chest pain Your Health Problems Are: Chest Pain Goals to Promote Your Health * To prevent worsening of your condition and complications * To maintain your health at the optimal level Directions to Meet Your Goals Take your medications as prescribed Follow your dietary instruction Follow activity as directed Keep your appointments as scheduled Take your immunizations and boosters as scheduled If your symptoms worsen call your PCP, if no PCP go to Urgent Care Center or Emergency Room Smoking is Dangerous to Your Health. Avoid second hand smoke Call the 24-hour hour crisis hotline for domestic abuse at Janki Barr Sep 17, 2017 18:49
--- NOTE | 2017-09-17 18:49 | HHI.DCPOC ---
Discharge Care Plan Diagnosis: (1) Chest pain Your Health Problems Are: Chest Pain Goals to Promote Your Health * To prevent worsening of your condition and complications * To maintain your health at the optimal level Directions to Meet Your Goals Take your medications as prescribed Follow your dietary instruction Follow activity as directed Keep your appointments as scheduled Take your immunizations and boosters as scheduled If your symptoms worsen call your PCP, if no PCP go to Urgent Care Center or Emergency Room Smoking is Dangerous to Your Health. Avoid second hand smoke Call the 24-hour hour crisis hotline for domestic abuse at Janki Barr Sep 17, 2017 18:49
--- NOTE | 2017-09-17 18:49 | HHI.DCPOC ---
Discharge Care Plan Diagnosis: (1) Chest pain Your Health Problems Are: Chest Pain Goals to Promote Your Health * To prevent worsening of your condition and complications * To maintain your health at the optimal level Directions to Meet Your Goals Take your medications as prescribed Follow your dietary instruction Follow activity as directed Keep your appointments as scheduled Take your immunizations and boosters as scheduled If your symptoms worsen call your PCP, if no PCP go to Urgent Care Center or Emergency Room Smoking is Dangerous to Your Health. Avoid second hand smoke Call the 24-hour hour crisis hotline for domestic abuse at Janki Barr Sep 17, 2017 18:49
--- NOTE | 2017-09-17 18:55 | RADRPT ---
EXAM DATE/TIME: 09/17/2017 17:40 [facility] COMPARISON: No previous studies available for comparison. INDICATIONS : Left sided chest pain. Angina. Abnormal EKG. DOSE: 35 mCi Tc99m Myoview at stress. 11 mCi Tc99m Myoview at rest. 0.4 mg Lexiscan STRESS SYMPTOMS: None. EJECTION FRACTION: 68% MEDICAL HISTORY : Hypercholesterolemia. SURGICAL HISTORY : Hysterectomy. Cholecystectomy. ENCOUNTER: Initial ACUITY: 3 days PAIN SCALE: 3/10 LOCATION: Left chest TECHNIQUE: The patient underwent pharmacologic stress with infusion of prescribed dose. Continuous ECG tracing was monitored during stress. Gated SPECT imaging was performed after stress and conventional SPECT i maging was performed at rest. The examination was performed on a SPECT/CT scanner, both attenuation and non-corrected datasets were reviewed. FINDINGS: DISTRIBUTION: The maximum perfused segment at stress is in the anterior lateral wall. PERFUSION STUDY: The pattern of perfusion at stress is within normal limits. GATED STUDY: There is intact wall motion and thickening without hypokinetic or dyskinetic segments. CONCLUSION: 1. No fixed or reversible defects to suggest ischemia or infarction. 2. Normal wall motion and calculated ejection fraction. RISK CATEGORY: Low (<1% Annual Mortality Rate) Raul Delarosa MD on September 17, 2017 at 18:52 Board Certified Radiologist. This report was verified electronically.
[2017-09-17] MEDS ORDERED: GABAPENTIN 300 MG CAP PO SCH (21:00)
[2017-09-17] MEDS ORDERED: SODIUM CHLORIDE 0.9% FLUSH 10 ML FLUSH IV FLUSH SCH (21:00)
--- NOTE | 2017-09-18 09:17 | EKG ---
Date Performed: 09/17/2017 Time Performed: 13:17:11 PTAGE: 47 years EKG: Sinus rhythm MODERATE VOLTAGE CRITERIA FOR LVH, CONSIDER NORMAL VARIANT BORDERLINE ECG Compared to prior tracing no significant change PREVIOUS TRACING : 09/17/2017 09.58 DOCTOR: Bernard Spears Interpretating Date/Time 09/18/2017 09:16:25
--- NOTE | 2017-09-18 09:17 | EKG ---
Date Performed: 09/17/2017 Time Performed: 15:50:27 PTAGE: 47 years EKG: SINUS BRADYCARDIA LOW QRS VOLTAGE IN PRECORDIAL LEADS BORDERLINE ECG Compared to prior trac ing no significant change PREVIOUS TRACING : 09/17/2017 13.17 DOCTOR: Bernard Spears Interpretating Date/Time 09/18/2017 09:16:34
--- NOTE | 2017-09-21 08:59 | TR ---
Date Performed: 09/17/2017 Time Performed: 18:04:44 DOCTOR: Khari Barclay DRUG LIST: CLINICAL HISTORY: REASON FOR TEST: REASON FOR ENDING: OBSERVATION: CONCLUSION: Lexiscan stress test was performed under standard four minute protocol. Radionuclid e was injected one minute prior to ending the test. No electrocardiographic abormalities were present to suggest ischemia. Nuclear imaging and interpretation are pending. COMMENTS:
== END 2017-09-17 21:23 | disposition home or self-care (01) ==
LOC: PHED 09:42 → PHEDA 11:29 → PH3B 12:40
PROVIDERS: ADMIT Hospitalist; ATTEND Hospitalist
DX: R07.89 Other chest pain (principal); E78.5 Hyperlipidemia, unspecified; E11.65 Type 2 diabetes mellitus with hyperglycemia; J45.909 Unspecified asthma, uncomplicated; K31.84 Gastroparesis; K21.9 Gastro-esophageal reflux disease without esophagitis; R94.31 Abnormal electrocardiogram [ECG] [EKG]; Z79.84 Long term (current) use of oral hypoglycemic drugs; Z82.49 Family history of ischemic heart disease and other diseases of the circulatory system
CPT/HCPCS: 71010; 78452; 80053; 82550; 82948; 84484; 85025; 93005; 93017; 99285; A9502; G0378; J2785

== ENCOUNTER 2018-03-30 15:50 | Emergency (ER) | payer MEDICARE ==
[~2018-03-30 15:50] MED LIST changes: -GEMF600T PO; -GLIM2TAB PO; +HUMALOG SQ; -HYDR-3516 PO; +LEVEMIR SQ; -METF500T4 PO; +NITR0.4S SL; -SUMA25TA2 PO; -ZOFR4TAB3 SL
[2018-03-30 16:07] VITALS: BP 154/90; PULSE 101; RESP 16; TEMP 98.1; O2SAT 97
[2018-03-30] MEDS ORDERED: LIDOCAINE HCL 1% 50 ML VIAL INFIL ONE (17:45)
[2018-03-30] MEDS ORDERED: LIDOCAINE HCL 1% PF 30 ML VIAL ONE (17:47)
--- NOTE | 2018-03-30 17:50 | PD ---
HPI Chief Complaint: Injury Time Seen by Provider: 17:37 Travel History International Travel<30 days: No Contact w/Intl Traveler<30days: No Traveled to known affect area: No History of Present Illness HPI She has not been on any antibiotics. This 47-year-old female says that she injured her right thumb a week ago. She says she is using scissors and the scissors went through the nail at the base of the thumb. Since then that area has become swollen and there has been drainage and there appears to be some tissue pushing out through the nail. He went to a community health nurse and was referred to a hand surgeon. She had an appointment with a hand surgeon today but was apparently canceled. She has not been on any antibiotics PFS Past Medical History Arthritis: No Asthma: Yes Heart Rhythm Problems: No Cardiovascular Problems: No High Cholesterol: Yes Chest Pain: No Congestive Heart Failure: No COPD: No Diabetes: Yes Endocrine: Yes GERD: Yes Genitourinary: Yes (UTIs) Musculoskeletal: Yes (herniated disc) Neurologic: No Respiratory: Yes (REACTIVE AIRWAY) Immunizations Current: Yes Migraines: Yes Pancreatitis: Yes Sleep Apnea: No Triglycerides - High: Yes ?: Not : 0 Para: 0 Past Surgical History Abdominal Surgery: Yes (gallbladder removed) Cardiac Surgery: No Ear Surgery: No Endocrine Surgery: No Eye Surgery: No Genitourinary Surgery: No Gynecologic Surgery: Yes (HYSTERECTOMY) Hysterectomy: Yes Oral Surgery: No Tonsillectomy: Yes Other Surgery: Yes (SINUS X7) Social History Alcohol Use: No Tobacco Use: No (NEVER) Substance Use: No Allergies-Medications (Allergen,Severity, Reaction): Coded Allergies: hydromorphone (Verified Adverse Reaction, Severe, Headache, 03/30/18) Reported Meds & Prescriptions Reported Meds & Active Scripts Active Nitrostat SL (Nitroglycerin) 0.4 Mg Subl 0.4 Mg SL Q5M PRN 30 Days Reported Humalog Inj (Insulin Human Lispro) 1,000 Unit/10 Ml Vial 1-9 Units SQ ACHS Max dose at bedtime:( )units; sugars< 70,(0)units; sugars 150-199,(1)unit; sugars 200-249,(3)units; sugars 250-299,(5)units; sugars 300-349,(7)units; sugars more than 349,(9)units. Levemir Inj (Insulin Detemir) 1,000 unit/ 10 ML Vial 12 Units SQ DAILY Do not mix with any other Insulin. Review of Systems General / Constitutional: No: Fever, Chills Eyes: No: Diploplia Cardiovascular: No: Chest Pain or Discomfort, Palpitations Genitourinary: No: Urgency, Frequency Physical Exam Narrative GENERAL: Well-developed female SKIN: Focused skin assessment warm/dry. HEAD: Atraumatic. Normocephalic. EYES: Pupils equal and round. No scleral icterus. No injection or drainage. ENT: No nasal bleeding or discharge. Mucous membranes pink and moist. NECK: Trachea midline. No JVD. MUSCULOSKELETAL: No obvious deformities. No clubbing. No cyanosis. No edema. Examination of the right thumb shows a defect at the base of the thumb overlying the lunula there is some soft tissue extruding through the defect. There is purulent material present also NEUROLOGICAL: Awake and alert. No obvious cranial nerve deficits. Motor grossly within normal limits. Normal speech. PSYCHIATRIC: Appropriate mood and affect; insight and judgment normal. Data Data Last Documented VS Vital Signs Date Time Temp Pulse Resp B/P (MAP) Pulse Ox O2 Delivery O2 Flow Rate FiO2 03/30/18 18:01 16 Room Air 03/30/18 16:07 98.1 101 154/90 (111) 97 Orders Orders Finger ([id number]) (03/30/18 17:37) Wound Culture And Gram Stain (03/30/18 17:37) Lidocaine 1% Inj (50 Ml) (Xylocaine 1% I (03/30/18 17:45) Lidocaine Pf 1% Inj (Xylocaine-Mpf 1% In (03/30/18 17:47) MDM Medical Decision Making Medical Screen Exam Complete: Yes Emergency Medical Condition: Yes Medical Record Reviewed: Yes Differential Diagnosis Differential includes infected nail laceration, Narrative Course Patient has a laceration of the nail which is infected. There is purulent material present there is also some soft tissue extruding through the defect in the nail. Procedures Procedure Narrative Digital block was performed. The nail was removed. There was a soft tissue she mass present at the base of the nail. She is to follow-up with since our regarding this mass. Culture was obtained there was purulent material present under the nail. She will be placed on clindamycin and given Phelps for pain Diagnosis Primary Impression: Laceration of thumb with infection Scripts Hydrocodone-Acetaminophen (Phelps) 7.5-325 mg Tab 1 TAB PO Q4H Y for PAIN, #12 TAB 0 Refills Prov: Yosvany Sahni MD 03/30/18 Clindamycin (Clindamycin) 300 Mg Cap 600 MG PO Q8H for Infection for 7 Days, #42 CAP 0 Refills Prov: Yosvany Sahni MD 03/30/18 Disposition: 01 DISCHARGE HOME Condition: Stable Yosvany Sahni MD March 30, 2018 17:50
[2018-03-30] MEDS ORDERED: HYDR-3288 PO (18:45)
[2018-03-30] MEDS ORDERED: CLIN300C5 PO (18:45)
--- NOTE | 2018-03-30 18:46 | RADRPT ---
EXAM DATE/TIME: 03/30/2018 17:55 [facility] COMPARISON: No previous studies available for comparison. INDICATIONS : Right thumb wound. Patient injuried distal right thumb 1 week ago. MEDICAL HISTORY : None. SURGICAL HISTORY : None. ENCOUNTER: Initial ACUITY: 1 day PAIN SCORE: 5/10 LOCATION: Right distal thumb. FINDINGS: Examination of the first digit of the right hand demonstrates no evidence of fracture or dislocation. No radiopaque foreign bodies are seen. CONCLUSION: No acute bony injury Jan Daigle MD on March 30, 2018 at 18:43 Board Certified Radiologist. This report was verified electronically.
[2018-03-30] MEDS ORDERED: ACETAMINOPHEN/HYDROcodone 325 MG/5 MG TAB PO ONE (19:00)
== END 2018-03-30 19:11 | disposition home or self-care (01) ==
LOC: PHED 15:50
DX: S61.111A Laceration without foreign body of right thumb with damage to nail, initial encounter (principal); L08.9 Local infection of the skin and subcutaneous tissue, unspecified; B95.62 Methicillin resistant Staphylococcus aureus infection as the cause of diseases classified elsewhere; W27.2XXA Contact with scissors, initial encounter; E11.9 Type 2 diabetes mellitus without complications; E78.00 Pure hypercholesterolemia, unspecified; J45.909 Unspecified asthma, uncomplicated; K21.9 Gastro-esophageal reflux disease without esophagitis
CPT/HCPCS: 11730; 73140; 86403; 87070; 87186; 87205